=== PATIENT | female | born 1995 | race Caucasian/White ===

== ENCOUNTER 2022-05-21 13:41 | Outpatient (CLI) | payer OTHER, SELFPAY ==
[2022-05-21 16:02] LABS: Free T4 Free Thyroxine* 1.07 ng/dL (0.70-1.85)
[2022-05-23 13:05] LABS: Thyroid Peroxidase (TPO) Ab 3.6 IU/mL (0.0-9.0)
== END 2022-05-21 13:42 | disposition home or self-care (01) ==
PROVIDERS: Visit Provider Obstetrics & Gynecology
DX: O99.281 Endocrine, nutritional and metabolic diseases complicating pregnancy, first trimester (principal); E03.9 Hypothyroidism, unspecified; Z3A.14 14 weeks gestation of pregnancy
CPT/HCPCS: 84439; 84443; 86376

== ENCOUNTER 2022-05-21 13:56 | Outpatient (CLI) | payer OTHER, SELFPAY ==
--- NOTE | 2022-05-21 14:00 | US_ITS ---
Final Report Patient: MERY WU Facility:?[facility] Patient ID:?[id number] Site Patient ID:?[id number]. Site :?[id number] Study:?US OB Pelvis -05/21/2022 3:06:59 PM Ordering Physician:Kamran Redding Final Report: INDICATION: Possible vanishing twin Comparison ultrasound 04/11/2022 TECHNIQUE: Real-time fulton-scale imaging of the pelvis was performed. FINDINGS: Again seen is two intrauterine gestational sacs with thick inter twin membrane. Previously-seen were two living intrauterine twin gestations. Currently there is a one living gestation with crown-rump length measuring 7.3 centimeters corresponding to 13 weeks 3 days with EVELYN of 11/23/2022. heart rate measures 159 beats per minute. There is a 2nd empty gestational sac. There is no perigestational hemorrhage. IMPRESSION: 1. Previously documented dichorionic diamniotic living twin gestations on 04/11/2022. Currently there is one viable intrauterine gestation with crown-rump length measuring 7.3 cm corresponding to 13 weeks 3 days with EVELYN of 11/23/2022. There is an additional 2nd empty gestational sac reflecting demise. Dictated by Mora Enciso MD @ 05/21/2022 8:36:23 PM (Electronic Signature)
== END 2022-05-21 13:57 | disposition home or self-care (01) ==
PROVIDERS: Visit Provider Obstetrics & Gynecology
DX: O31.10X0 Continuing pregnancy after spontaneous abortion of one fetus or more, unspecified trimester, not applicable or unspecified (principal); Z3A.13 13 weeks gestation of pregnancy
CPT/HCPCS: 76805; 76816

== ENCOUNTER 2022-07-02 14:26 | Outpatient (CLI) | payer OTHER, SELFPAY | END 2022-07-02 14:27 | disposition home or self-care (01) | LOC: US 14:26 | PROVIDERS: Visit Provider Pediatrics Neonatal-Perinatal Medicine | DX: O31.12X0 Continuing pregnancy after spontaneous abortion of one fetus or more, second trimester, not applicable or unspecified (principal); Z3A.18 18 weeks gestation of pregnancy | CPT/HCPCS: 76811 ==

== ENCOUNTER 2022-08-01 11:09 | Outpatient (CLI) | payer OTHER, SELFPAY ==
[2022-08-01 17:03] LABS: Free T4 Free Thyroxine* 0.95 ng/dL (0.70-1.85)
== END 2022-08-01 11:10 | disposition home or self-care (01) ==
PROVIDERS: Visit Provider Obstetrics & Gynecology
DX: E03.9 Hypothyroidism, unspecified (principal); O99.280 Endocrine, nutritional and metabolic diseases complicating pregnancy, unspecified trimester; E05.90 Thyrotoxicosis, unspecified without thyrotoxic crisis or storm
CPT/HCPCS: 84439; 84443

== ENCOUNTER 2022-09-11 09:55 | Outpatient (CLI) | payer OTHER, SELFPAY ==
[2022-09-13 20:38] LABS: Rapid Plasma Reagin (RPR) Non Reactive (Non Reactive)
== END 2022-09-11 09:56 | disposition home or self-care (01) ==
LOC: NFLDREF 13:35
PROVIDERS: Visit Provider Obstetrics & Gynecology
DX: Z34.90 Encounter for supervision of normal pregnancy, unspecified, unspecified trimester (principal)
CPT/HCPCS: 86592

== ENCOUNTER 2022-09-11 13:53 | Outpatient (CLI) | payer OTHER, SELFPAY ==
--- NOTE | 2022-09-11 14:00 | CRLHL7_ITS ---
For Patients: As a result of the Century Cures Act, medical imaging exams and procedure reports are released immediately into your electronic medical record. You may view this report before your referring provider. If you have questions, please contact your health care provider. INDICATION: Third trimester scan, evaluate growth. History of vanishing twin , covid in . COMPARISON: 07/02/2022 TECHNIQUE: Real time fulton scale imaging of the fetus was performed. FINDINGS: Sonographic imaging demonstrates a single living intrauterine gestation. Fetus demonstrates a regular cardiac rate of 157 beats per minute. Fetus has a vertex position. The placenta lies posteriorly. Amniotic fluid volume appears normal and there is a single deepest vertical pocket: 5.4 cm. The estimated weight is 1332gm which lies at the 45th %. On the prior OB ultrasound exam dated 07/02/2022 the estimated weight was at the 38th%. BPD 75th percentile. HC 78th percentile. AC 63rd percentile. FL 10th percentile. The HC/AC ratio measures 1.11 range (0.98-1.20). IMPRESSION: Sonographic gestational age 29 weeks 4 days and sonographic due date 11/23/2022. Sonographic age 5 days ahead of the clinical age. Estimated weight 45th percentile. Abdominal circumference 63rd percentile. Dictated by Handy Richard MD @ 09/12/2022 10:20:43 AM (Electronically Signed)
== END 2022-09-11 13:54 | disposition home or self-care (01) ==
LOC: US 13:53
PROVIDERS: Visit Provider Obstetrics & Gynecology
DX: Z34.93 Encounter for supervision of normal pregnancy, unspecified, third trimester (principal); Z3A.29 29 weeks gestation of pregnancy
CPT/HCPCS: 76816

== ENCOUNTER 2022-09-24 15:58 | Outpatient (CLI) | payer OTHER, SELFPAY ==
[2022-09-24 18:24] LABS: Free T4 Free Thyroxine* 0.98 ng/dL (0.70-1.85)
== END 2022-09-24 15:59 | disposition home or self-care (01) ==
PROVIDERS: Visit Provider Obstetrics & Gynecology
DX: O98.513 Other viral diseases complicating pregnancy, third trimester (principal); Z3A.33 33 weeks gestation of pregnancy
CPT/HCPCS: 84439; 84443

== ENCOUNTER 2022-10-10 12:49 | Outpatient (CLI) | payer OTHER, SELFPAY ==
--- NOTE | 2022-10-10 13:00 | CRLHL7_ITS ---
For Patients: As a result of the Century Cures Act, medical imaging exams and procedure reports are released immediately into your electronic medical record. You may view this report before your referring provider. If you have questions, please contact your health care provider. INDICATION: Third trimester scan, evaluate growth. COVID and . COMPARISON: 09/11/2022 TECHNIQUE: Real time fulton scale imaging of the fetus was performed. FINDINGS: Sonographic imaging demonstrates a single living intrauterine gestation. Fetus demonstrates a regular cardiac rate of 152 beats per minute. Fetus has a breech position. The placenta lies posteriorly without evidence of placenta previa. Amniotic fluid volume appears normal and there is a single deepest vertical pocket: 5.1 cm. The estimated weight is 2119gm which lies at the 44th %. On the prior OB ultrasound exam dated 09/11/2022 the estimated weight was at the 45th%. BPD 60th percentile. HC 40th percentile. AC 46th percentile. FL 41st percentile. The HC/AC ratio measures 1.06 range (0.95-1.11). IMPRESSION: Sonographic gestational age 33 weeks 3 days and sonographic due date 11/25/2022. Good correlation with dates. Normal interval growth. Estimated weight 44th percentile. Abdominal circumference 46th percentile. Dictated by Handy Richard MD @ 10/10/2022 1:47:22 PM (Electronically Signed)
== END 2022-10-10 12:50 | disposition home or self-care (01) ==
LOC: US 12:49
PROVIDERS: Visit Provider Obstetrics & Gynecology
DX: O98.513 Other viral diseases complicating pregnancy, third trimester (principal); U07.1 COVID-19; Z3A.33 33 weeks gestation of pregnancy
CPT/HCPCS: 76816

== ENCOUNTER 2022-10-17 12:05 | Outpatient (CLI) | payer OTHER, SELFPAY ==
--- NOTE | 2022-10-17 12:15 | CRLHL7_ITS ---
For Patients: As a result of the Century Cures Act, medical imaging exams and procedure reports are released immediately into your electronic medical record. You may view this report before your referring provider. If you have questions, please contact your health care provider. INDICATION: COVID in COMPARISON: 10/10/2022 TECHNIQUE: Real time fulton scale imaging of the fetus was performed. Without non-stress testing. FINDINGS: Sonographic imaging demonstrates a single living intrauterine gestation. Fetus demonstrates a regular cardiac rate of 145 beats per minute. Fetus has a vertex position. The amniotic fluid volume appears normal and there is a single deepest pocket measurement of 5.0 cm. The fetus was active and demonstrated normal breathing movements. There was normal flexion and extension of the trunk and extremities. IMPRESSION: Normal biophysical profile score of 8 out of 8. Dictated by Handy Richard MD @ 10/17/2022 1:31:05 PM (Electronically Signed)
== END 2022-10-17 12:06 | disposition home or self-care (01) ==
LOC: US 12:05
PROVIDERS: Visit Provider Obstetrics & Gynecology
DX: O98.513 Other viral diseases complicating pregnancy, third trimester (principal); U07.1 COVID-19; Z3A.34 34 weeks gestation of pregnancy
CPT/HCPCS: 76819

== ENCOUNTER 2022-10-17 13:14 | Outpatient (CLI) | payer OTHER, SELFPAY ==
[2022-10-17 14:22] LABS: Alanine Aminotransferase* 19 U/L (4-35); Aspartate Amino Transferase* 35 U/L (12-35); Creatinine* 0.5 mg/dL (0.5-1.5); Estimated Glomerular Filt Rate 130 ml/min
[2022-10-17 14:35] LABS: Total Protein Urine 11 mg/dL
[2022-10-17 14:37] LABS: Creatinine Urine 115.1 mg/dL
== END 2022-10-17 13:15 | disposition home or self-care (01) ==
PROVIDERS: Visit Provider Obstetrics & Gynecology
DX: O13.3 Gestational [pregnancy-induced] hypertension without significant proteinuria, third trimester (principal); Z3A.34 34 weeks gestation of pregnancy
CPT/HCPCS: 82565; 82570; 84156; 84450; 84460

== ENCOUNTER 2022-10-24 12:01 | Outpatient (CLI) | payer OTHER, SELFPAY ==
[2022-10-24 13:03] LABS: Alanine Aminotransferase* 18 U/L (4-35); Aspartate Amino Transferase* 27 U/L (12-35); Creatinine* 0.5 mg/dL (0.5-1.5); Estimated Glomerular Filt Rate 130 ml/min
[2022-10-24 13:04] LABS: Creatinine Urine 120.3 mg/dL; Total Protein Urine 9 mg/dL
[2022-10-25 20:25] LABS: Strep B DNA Probe POSITIVE (Negative)
[2022-10-26 14:54] LABS: Strep B Pen/Amox Allergy No
== END 2022-10-24 12:02 | disposition home or self-care (01) ==
PROVIDERS: Obstetrics & Gynecology; Visit Provider Obstetrics & Gynecology
DX: O98.513 Other viral diseases complicating pregnancy, third trimester (principal); Z3A.35 35 weeks gestation of pregnancy
CPT/HCPCS: 82565; 82570; 84156; 84450; 84460; 87081; 87653

== ENCOUNTER 2022-10-24 12:14 | Outpatient (CLI) | payer OTHER, SELFPAY ==
--- NOTE | 2022-10-24 12:15 | CRLHL7_ITS ---
For Patients: As a result of the Century Cures Act, medical imaging exams and procedure reports are released immediately into your electronic medical record. You may view this report before your referring provider. If you have questions, please contact your health care provider. INDICATION: COVID in . BMI greater than 45. COMPARISON: OB ultrasound 10/17/2022. TECHNIQUE: Real time fulton scale imaging of the fetus was performed without non-stress testing. FINDINGS: Sonographic imaging demonstrates a single living intrauterine gestation. The fetus demonstrates a regular cardiac rate of 130 beats per minute. The fetus has a cephalic orientation. Amniotic fluid volume appears normal with single deepest pocket measuring 4.8 cm (2/2). The fetus was active (2/2). There was normal flexion and extension of the trunk and extremities (2/2). The fetus demonstrated normal breathing movements (2/2). IMPRESSION: Normal biophysical profile score 8 out of 8. Dictated by Ann Arias MD @ 10/24/2022 9:14:38 PM (Electronically Signed)
== END 2022-10-24 12:15 | disposition home or self-care (01) ==
LOC: US 12:15
PROVIDERS: Visit Provider Obstetrics & Gynecology
DX: O98.519 Other viral diseases complicating pregnancy, unspecified trimester (principal); U07.1 COVID-19
CPT/HCPCS: 76819

== ENCOUNTER 2022-10-30 09:03 | Outpatient (CLI) | payer OTHER, SELFPAY ==
[2022-10-30 14:30] LABS: Total Protein Urine 20 mg/dL
[2022-10-30 14:31] LABS: Creatinine Urine 47.7 mg/dL
[2022-10-30 15:25] LABS: Alanine Aminotransferase* 12 U/L (4-35); Aspartate Amino Transferase* 22 U/L (12-35); Blood Urea Nitrogen* 6 mg/dL (5-24); Creatinine* 0.5 mg/dL (0.5-1.5); Estimated Glomerular Filt Rate 130 ml/min
== END 2022-10-30 09:04 | disposition home or self-care (01) ==
PROVIDERS: Visit Provider Obstetrics & Gynecology
DX: O13.9 Gestational [pregnancy-induced] hypertension without significant proteinuria, unspecified trimester (principal)
CPT/HCPCS: 82565; 82570; 84156; 84450; 84460; 84520

== ENCOUNTER 2022-10-30 12:13 | Outpatient (CLI) | payer OTHER, SELFPAY ==
--- NOTE | 2022-10-30 12:15 | CRLHL7_ITS ---
For Patients: As a result of the Century Cures Act, medical imaging exams and procedure reports are released immediately into your electronic medical record. You may view this report before your referring provider. If you have questions, please contact your health care provider. INDICATION: Biophysical profile TECHNIQUE: Ultrasound OB pelvis abdominal biophysical profile COMPARISON: 10/24/2022 FINDINGS: Sonographic imaging demonstrates a single living intrauterine gestation. Fetus demonstrates a regular cardiac rate of 155 beats per minute. Fetus has a orientation. The placenta lies posterior. Cephalic presentation. The cervix is not visualized. Amniotic fluid volume appears normal with the single deepest pocket measuring 5.4 cm. breathing movements, motion, and tone were all observed. IMPRESSION: Single viable intrauterine with a biophysical profile 06/30. Dictated by Handy Etienne MD @ 10/31/2022 8:10:47 AM (Electronically Signed)
== END 2022-10-30 12:14 | disposition home or self-care (01) ==
LOC: US 12:13
PROVIDERS: Visit Provider Obstetrics & Gynecology
DX: O98.519 Other viral diseases complicating pregnancy, unspecified trimester (principal); U07.1 COVID-19; Z68.41 Body mass index [BMI] 40.0-44.9, adult
CPT/HCPCS: 76819

== ENCOUNTER 2022-11-03 09:02 | Outpatient (CLI) | payer OTHER, SELFPAY ==
[2022-11-03 10:07] LABS: Total Protein Urine 17 mg/dL
[2022-11-03 10:08] LABS: Creatinine Urine 47.7 mg/dL
[2022-11-03 11:59] LABS: Collection Time Urine 24 Hours; Total Protein 24 Hour Urine 578 mg/dL; Total Volume 24 Hour Urine 3400 ml; Urine Creatinine mg/24 Hour 0 mg/Day
== END 2022-11-03 09:03 | disposition home or self-care (01) ==
LOC: NFLDREF 09:02
PROVIDERS: Visit Provider Obstetrics & Gynecology
DX: O14.90 Unspecified pre-eclampsia, unspecified trimester (principal)
CPT/HCPCS: 84156

== ENCOUNTER 2022-11-06 08:11 | Inpatient (IN) | payer OTHER, SELFPAY ==
[2022-11-06] VITALS (17 sets, daily range): BP systolic 106–147; BP diastolic 57–87; PULSE 80–98; RESP 16–20; TEMP 36.6–37.1; O2SAT 97–98; BMI 48.1
--- NOTE | 2022-11-06 09:15 | P.LDBA_ITS ---
Documented by User: Karishma Yates CNM 11/06/22 13:01 Subjective History of Present Illness Date Seen: 11/06/22 Narrative: Roberta is being admitted to Labor and Delivery for induction of labor r/t Pre- Eclampsia. She is a 27 year old at 36w 6d weeks gestation. Her full history and physical was dictated by Dr. Yanes on 10/29/22. Please see this for details. She is currently being supported by her Harry. Understands the current plan of care. ?Pre-Eclampsia without severe features, diagnosed 3 days ago. Denies concerns. Questions answered to her satisfaction. ?She is open to unmedicated labor or epidural for comfort and pain management.??Roberta is a Orthodoxy and declines all blood products. Discussed option for prophylactic TXA, pt agreeable. OB Problem List: Blood Type: O positive Partner: [place] (Jarocho Briggs is his sister) Baby: Boy! Jacob H&P done 10/29/[address] Yari Huang 1. Di/Di Twins, spontaneously reduced to sandoval by 13 weeks - NO LONGER TWIN 2. BMI>45 * Recommended Baby ASA @ 12 weeks * Hb A1c (04/11/22): 5.4 * Level 2 US 07/02/22: normal * Anesthesia consult 3rd trimester * Monthly US for growth * 28 6/7 weeks: cephalic, SDP 5.4 cm, EFW 45%. * Thirty-three weeks: Breech, SDP 5.1 cm, EFW 44% with all growth parameters within normal ranges * Weekly BPP beginning 34 weeks 3. Orthodoxy Declines blood product, encouraged to start taking iron Hgb at NOB 13.2 4. Subclinical Hypothyroid NOB (04/11/22): TSH 5.06, T4 0.9. Started on Levothyroxine 50 mcg 04/14 Repeat TSH and free T4 05/21/22: TSH 1.020, normal free T4. Continue at current dose. Repeat TSH at 24 weeks: TSH 1.100, free T4 0.95 Repeat TSH at 30 weeks (09/24/2022): TSH 2.020, free T4 0.98 5. Rubella Equivocal, NEEDS MMR 6. Breech at 33 weeks. Now vertex. 7. Mild Preeclampsia dx'd 11/03/22 * Weekly BPP * Weekly labs 10/30/22: Hemoglobin 11.2, platelets 247, AST 22 , ALT 12, BUN 6, creatinine 0.5. Urine P/C ratio: 0.40 (H) * 24 hour urine for protein ordered to be given Jugs and hat on 10/31 when she gets her 2nd BMTZ. * 11/03/2022: 24 hour urine protein 578 mg * Delivery at 37 weeks gestation: Cervical ripening on 11/06/22 w/ vaginal cytotec. * BMTZ: #1 10/30/22. #2 10/31/22 NEEDS pap . Offered at 12 weeks; declines. COVID: vaccinated Flu: 09/24/2022 Tdap: 09/24/2022 ? OB - H&P: Exam Physical Exam: Vital signs: Pulse BP Pulse Ox 91 124/83 98 11/06/22 08:22 11/06/22 08:22 11/06/22 08:32 Narrative: VSS, afebrile General Appearance:?Calm, cooperative. No acute distress. ? Psychiatric Exam: Alert and oriented, appropriate affect Abdomen: Gravid Ctx: ?none FHTs: ?Baseline: 145 ? ?Variability: Moderate ? Accels: Present ? ?Decels: ?Absent SVE:Closed, thick & high. Membranes: Intact OB - Problem Based A/P Additional Plan (1) Pre-eclampsia: Status: Acute (2) Adult BMI 40.0-44.9 kg/sq m: Status: Acute (3) Hypothyroidism complicating : Status: Acute (4) Vanishing twin syndrome: Status: Acute (5) No blood products: Status: Acute Plan Assessment:??27yo at 36w 6d gestation?? Patient is excited and nervous for IOL, but overall doing well? Labor type: Induced, not in labor? Category 1 FHR pattern.?? complicated by: Pre-Eclampsia with out severe features, subclinical hypothyroidism, BMI 48 Labor complicated by: GBS+, Orthodoxy - declines blood products, BMI >40 Plan:?? Continue with routine intrapartum cares as ordered.?? IOL per cytotec protocol Continuous monitoring GBS prophylaxis per protocol IV access Patient encouraged to ambulate and change positions to promote physiologic labor and .?? Analgesia or nonpharmacologic comfort measures per patient preference. Patient does not plan for waterbirth. Prophylactic TXA before delivery Anticipate progress to active labor and . ? Delivery/Labor/Induction Plan Plan: induction Induction method: per misoprostol protocol Documented by User: Bonita Paz CNM 11/06/22 13:26 OB - Problem Based A/P Additional Plan (1) Pre-eclampsia: Status: Acute (2) Adult BMI 40.0-44.9 kg/sq m: Status: Acute (3) Hypothyroidism complicating : Status: Acute (4) Vanishing twin syndrome: Status: Acute (5) No blood products: Status: Acute Plan Assessment:?? 27yo at 36w 6d gestation?? Patient is excited and nervous for IOL, but overall doing well? Labor type: Induced, not in labor? Category 1 FHR pattern.?? complicated by: -Pre-Eclampsia with out severe features, -subclinical hypothyroidism, -BMI 48 Labor complicated by: -GBS+, -Orthodoxy - declines blood products -BMI >40 Plan:?? Continue with routine intrapartum cares as ordered.?? IOL per cytotec protocol Continuous monitoring GBS prophylaxis per protocol IV access Patient encouraged to ambulate and change positions to promote physiologic labor and .?? Analgesia or nonpharmacologic comfort measures per patient preference. Patient does not plan for waterbirth. Consider prophylactic TXA before delivery Anticipate progress to active labor and . ?
[2022-11-06 09:37] LABS: Basophils Percent Auto 0.3 % (0.0-3.0); Eosinophils Percent Auto 0.4 % (0.0-7.0); Hematocrit 36.3 % (33.0-51.0); Hemoglobin* 11.9 gm/dL (12.0-16.0); Immature Granulocytes Pct Auto 0.2 %; Lymphocytes Percent Auto 25.3 % (20-44); Mean Corpuscular HGB Conc 33 gm/dL (32-36); Mean Corpuscular Hemoglobin 26 pg (26-34); Mean Corpuscular Volume 80 fL (80-100); Monocytes Percent Auto 7.8 % (0.0-11.0); Platelet Count* 256 K/uL (140-440); RDW Coefficient of Variation % 14.4 % (11.5-15.5); Red Blood Count 4.55 m/uL (4.00-5.20); White Blood Count* 11.91 K/uL (4.50-11.00)
[2022-11-06 09:44] LABS: Slide Review Reflex No
[2022-11-06] MEDS: miSOPROStoL 25 MCG/0.25 TABLET VAGINAL ×3 (09:44→17:53)
[2022-11-06 10:36] LABS: SARS PCR* Negative SARS-CoV-2 (Negative)
[2022-11-06 20:34] LABS: Amnisure Rom* Negative
[2022-11-06] MEDS: miSOPROStoL 25 MCG/0.25 TABLET 50 MCG VAGINAL (21:50)
[2022-11-06 23:19] LABS: Alanine Aminotransferase* 13 U/L (4-35); Aspartate Amino Transferase* 21 U/L (12-35); Blood Urea Nitrogen* 10 mg/dL (5-24); Creatinine* 0.5 mg/dL (0.5-1.5); Estimated Glomerular Filt Rate 130 ml/min
[2022-11-07] VITALS (41 sets, daily range): BP systolic 95–176; BP diastolic 54–94; PULSE 63–84; RESP 16–18; TEMP 36.4–37.1; O2SAT 92–100
[2022-11-07] MEDS: miSOPROStoL 25 MCG/0.25 TABLET VAGINAL (01:45)
[2022-11-07] MEDS: LACTATED RINGERS 1000 ML 1,000 ML 125 ML IV (02:31)
[2022-11-07] MEDS: DINOPROSTONE 10 MG VAGINAL INSERT VAGINAL (06:00)
[2022-11-07] MEDS: LABETALOL HCL 5 MG/ML inj IVP (07:01)
[2022-11-07 07:43] LABS: Hematocrit 35.5 % (33.0-51.0); Hemoglobin* 11.5 gm/dL (12.0-16.0); Mean Corpuscular HGB Conc 32 gm/dL (32-36); Mean Corpuscular Hemoglobin 26 pg (26-34); Mean Corpuscular Volume 80 fL (80-100); Platelet Count* 237 K/uL (140-440); Red Blood Count 4.45 m/uL (4.00-5.20); White Blood Count* 14.45 K/uL (4.50-11.00)
[2022-11-07 07:49] LABS: Slide Review Reflex No
--- NOTE | 2022-11-07 07:52 | P.OBPN_ITS ---
Subjective Date Seen: 11/07/22 Narrative: 27 y/o at 37 weeks admitted yesterday morning for IOL in the setting of preeclampsia w/o severe features. Over a period of 24 hours she received a total dose of 150mcg of cytotec. Cervical check this morning by RN cervix was still found fingertip. Cervidil was placed this am. This morning patient had severely elevated blood pressures meeting criteria for treatment. Treated with IV Labetalol x1. Diagnosis of preeclampsia with severe features was made and IV Magnesium Sulfate started. No SOFTWARE ENGINEERING ANALYST irritability symptoms such as headaches, visual changes or pain in the upper abdomen. Objective Exam: Patient would like to defer at this time Vital Signs: Last Vital Signs Temp 98.4 F 11/07/22 05:50 Pulse 79 11/07/22 07:45 Resp 18 11/07/22 05:50 BP 128/71 11/07/22 07:45 Pulse Ox 98 11/06/22 08:32 Contractions Monitor mode: External Contraction pattern: Irregular Contraction intensity: Mild Assessment Assessment: other (Failed IOL in the setting of preeclampsia with severe features) Status: Category l Heart Rate Baseline: 120 Food Beverage Supervisor Variability: Moderate (6-25) Monitor Accelerations: Present Monitor Decelerations: None Plan Plan: Discussed with patient and current status. Discussed my concern of a persistent unfavorable cervix even after 150mcg of Cytotec yesterday. Discussed the risk of prolonging the IOL process in the setting of preeclampsia with severe features (worsening of preeclampsia symptoms, hard to manage blood pressures, end organ damage, risk of worsening bleeding with development of coagulopathy, risk of worsening bleeding with prolonged exposure to Magnesium Sulfate etc...). Discussed that IOL may take even up to more than 24 hours at this time and that I would recommend a delivery at this time. Discussed the difference between a delivery at this time vs in 12 hours etc... If they would like to proceed with IOL I offered to check her cervix to assess if I could place a cook catheter. Patient and were given time to talk and they have decided to proceed with delivery at this time. Discussed risks of surgery such as bleeding, infection, damage to nearby organs, blood clots. Patient is Jehova's witness and refuses blood transfusions, will plan to give TXA right away after delivery of baby. 1. Proceed to delivery 2. Continue IV Magnesium Sulfate for seizure prophylaxis x 24 hours after delivery 3. Labs every 6 hours while on Magnesium 4. Strict I/O 5. SCDs to remain all the time while in bed, prophylactic Lovenox while inpatient 6. Close monitoring of vital signs, treat severely elevated BPs per protocol
[2022-11-07 07:56] LABS: Alanine Aminotransferase* 14 U/L (4-35); Aspartate Amino Transferase* 21 U/L (12-35); Creatinine* 0.5 mg/dL (0.5-1.5); Estimated Glomerular Filt Rate 130 ml/min
[2022-11-07 07:57] LABS: Blood Urea Nitrogen* 7 mg/dL (5-24)
[2022-11-07 08:18] LABS: INR 0.95 (0.91-1.10); Prothrombin Time 13.3 Seconds
[2022-11-07 08:20] LABS: Fibrinogen* 600 mg/dL (200-450)
[2022-11-07 08:21] LABS: Partial Thromboplastin Time* 26 Seconds (23-33)
[2022-11-07] MEDS: CEFAZOLIN 1 GM inj 3 GM IVP (08:35)
[2022-11-07] MEDS: LACTATED RINGERS 1000 ML 1,000 ML 100 ML IV (08:57)
[2022-11-07] MEDS: TRANEXAMIC ACID 100 MG/ML INJ 1000 MG IV (09:00)
--- NOTE | 2022-11-07 09:23 | PM.OBPRCCS ---
Procedure Pre-op/Post-op diagnoses: Pre-Op/Post-Op Diagnoses PreOp Diagnosis 1. IUP at 37 weeks 2. Preeclampsia with severe features 3. Failed induction of labor PostOp Diagnosis: 1. Same, now delivered Procedure Done: Global Procedure Details: Procedures Operation Date: 11/07/22 08:15 Actual Procedure Side Surgeon p Section Shae Lewis MD Claims Adjuster Supervisor: Sindy Brown Estimated blood loss (mL): 362 Disposition: floor Anesthesia type: Spinal Complications: None Narrative: PREOPERATIVE DIAGNOSES: 1. Intrauterine at 37 0 /7 weeks' gestation. 2. Preeclampsia with severe features 3. Failed induction of labor POSTOPERATIVE DIAGNOSES: 1. Intrauterine at 37 0/7 weeks' gestation. 2. Preeclampsia with severe features 3. Failed induction of labor NAME OF PROCEDURE: Primary low transverse section. ANESTHESIA: Spinal. COMPLICATIONS: None. Quantitative BLOOD LOSS: 362mL DRAINS: Reid to gravity. FINDINGS: Live-born male infant, OA presentation, Apgars 7 and 9 at 1 and 5 minutes respectively. weight pending. PROCEDURE: After obtaining informed consent, the patient was taken to the operating room where spinal anesthesia was obtained and found to be adequate. She was prepared and draped in the normal sterile fashion in the dorsal supine position with a leftward tilt. A Pfannenstiel skin incision was made with a scalpel about 2 cm above symphysis pubic bone, 8-10 cm in length. This incision was carried down to the underlying layer of fascia with the scalpel. The fascia was incised in the midline and the incision extended laterally. The rectus muscles were then in the midline. The Boed O retractor was then placed into the incision. The lower uterine segment was then incised in a transverse fashion with the scalpel. Upon entry into the uterus, clear amniotic fluid was noted. The uterine incision was extended cephalo caudally with blunt finger fractionation. head was brought to incision and with fundal pressure fetus was delivered atraumatically. The cord was doubly clamped and cut after 30 seconds of delayed cord clamping and the was handed off the field to warmer for evaluation. The placenta was delivered spontaneously with umbilical cord traction and fundal massage. The uterus was cleared of all clots and debris. The uterine incision was reapproximated in a running locking fashion with a 0 Vicryl suture. A 2nd layer of the same suture was used to imbricate in horizontal fashion. The gutters were inspected and cleared of blood clot. All instruments and retractors were removed. The subfascial tissues were carefully inspected and hemostasis assured. The fascia was reapproximated in a running fashion with a looped 0 Vicryl suture. The subcutaneous tissues were inspected and hemostasis was assured. The subcutaneous fat layer was reapproximated with running sutures of 3-0 Vicryl. The skin was closed in a subcuticular fashion with 4-0 Vicryl. LiquiBand and dressing were applied. The patient tolerated the procedure well. Sponge, lap, needle, and instrument counts were reported as correct x2. The patient was taken to the recovery room, awake, and in stable condition. She did receive 3 grams of IV Ancef preoperatively and 1 g of TXA after baby was delivered. Will continue IV Magnesium sulfate infusion x 24 hours .
--- NOTE | 2022-11-07 09:54 | W.PM.NB ---
Nerve Block Nerve Block Time Seen by Provider: 09:45 Date Seen: 11/07/22 Type of block requested by surgeon for post-operative analgesia: TAP Side: bilateral Time out performed: Yes Verification of patient name: Yes Verification of date of : Yes Site marking: site marked Name of person performing procedure: Maximus Reney Continuous monitoring Was continuous monitoring of O2 sat, B/P, manager monitoring, recorded every 15 minutes?: Yes Procedure Checklist: sterile prep, needles and gloves Ultrasound guided. Images saved: Yes Medications given in 5ml increments after negative aspiration: Marcaine %: 0.25 mL: 30 and Exparel mL: 10 Patient tolerated procedure well: Yes Block Charges Block Charge (with Pro Fee): TAP Bilateral Use of Ultrasound Machine for Block: Yes- US Guidance/pain block
--- NOTE | 2022-11-07 09:55 | W.ANESCHARGE ---
Anesthesia Charges Start Date/Time Anesthesia Start Date: 11/07/22 Anesthesia Start Time: 08:27 Stop Date/Time Anesthesia Stop Date: 11/07/22 Anesthesia Stop Time: 09:52 Summary Emergency: Yes
[2022-11-07 09:56] LABS: Magnesium* 1.9 mg/dL (1.5-2.6)
[2022-11-07] MEDS: LACTATED RINGERS 1000 ML 1,000 ML 75 ML IV (12:53)
[2022-11-07 13:55] LABS: Hematocrit 36.1 % (33.0-51.0); Hemoglobin* 11.7 gm/dL (12.0-16.0); Mean Corpuscular HGB Conc 32 gm/dL (32-36); Mean Corpuscular Hemoglobin 26 pg (26-34); Mean Corpuscular Volume 80 fL (80-100); Platelet Count* 248 K/uL (140-440); White Blood Count* 19.28 K/uL (4.50-11.00)
[2022-11-07 14:01] LABS: Slide Review Reflex No
[2022-11-07 14:14] LABS: Creatinine* 0.5 mg/dL (0.5-1.5); Estimated Glomerular Filt Rate 130 ml/min
[2022-11-07 14:15] LABS: Alanine Aminotransferase* 15 U/L (4-35); Aspartate Amino Transferase* 30 U/L (12-35); Blood Urea Nitrogen* 6 mg/dL (5-24)
[2022-11-07 14:40] LABS: Magnesium* 4.8 mg/dL (1.5-2.6)
[2022-11-07] MEDS: KETOROLAC 30 MG/ML inj IVP ×2 (16:03→21:35)
[2022-11-07 19:40] LABS: Hematocrit 34.4 % (33.0-51.0); Hemoglobin* 11.1 gm/dL (12.0-16.0); Mean Corpuscular HGB Conc 32 gm/dL (32-36); Mean Corpuscular Hemoglobin 26 pg (26-34); Mean Corpuscular Volume 80 fL (80-100); Platelet Count* 249 K/uL (140-440); Red Blood Count 4.28 m/uL (4.00-5.20); White Blood Count* 19.65 K/uL (4.50-11.00)
[2022-11-07 19:42] LABS: Slide Review Reflex No
[2022-11-07 19:57] LABS: Aspartate Amino Transferase* 27 U/L (12-35); Creatinine* 0.6 mg/dL (0.5-1.5); Est. Creatinine Clearance* 109.42; Estimated Glomerular Filt Rate 125 ml/min
[2022-11-07 19:58] LABS: Alanine Aminotransferase* 17 U/L (4-35); Blood Urea Nitrogen* 8 mg/dL (5-24)
[2022-11-07 20:01] LABS: Magnesium* 5.4 mg/dL (1.5-2.6)
[2022-11-07] MEDS: ENOXAPARIN 40 MG/0.4 ML INJ SUBCUT (21:35)
[2022-11-07] MEDS: SIMETHICONE 80 MG TAB.CHEW PO (23:27)
[2022-11-08] VITALS (8 sets, daily range): BP systolic 112–137; BP diastolic 67–86; PULSE 73–94; RESP 16; TEMP 36.4–36.9; O2SAT 96–99
[2022-11-08 01:37] LABS: Hematocrit 35.4 % (33.0-51.0); Hemoglobin* 11.4 gm/dL (12.0-16.0); Mean Corpuscular HGB Conc 32 gm/dL (32-36); Mean Corpuscular Hemoglobin 26 pg (26-34); Mean Corpuscular Volume 81 fL (80-100); Platelet Count* 276 K/uL (140-440); White Blood Count* 20.43 K/uL (4.50-11.00)
[2022-11-08 01:40] LABS: Slide Review Reflex No
[2022-11-08] MEDS: LACTATED RINGERS 1000 ML 1,000 ML 75 ML IV (01:41)
[2022-11-08 01:47] LABS: Alanine Aminotransferase* 15 U/L (4-35); Aspartate Amino Transferase* 27 U/L (12-35); Blood Urea Nitrogen* 10 mg/dL (5-24); Creatinine* 0.6 mg/dL (0.5-1.5); Est. Creatinine Clearance* 109.42; Estimated Glomerular Filt Rate 125 ml/min
[2022-11-08] MEDS: KETOROLAC 30 MG/ML inj IVP ×2 (03:02→09:24)
[2022-11-08 07:34] LABS: Hematocrit 30.3 % (33.0-51.0); Hemoglobin* 9.8 gm/dL (12.0-16.0); Mean Corpuscular HGB Conc 32 gm/dL (32-36); Mean Corpuscular Hemoglobin 26 pg (26-34); Mean Corpuscular Volume 80 fL (80-100); Platelet Count* 221 K/uL (140-440); Red Blood Count 3.78 m/uL (4.00-5.20); White Blood Count* 14.08 K/uL (4.50-11.00)
[2022-11-08 07:42] LABS: Slide Review Reflex No
[2022-11-08 07:49] LABS: Alanine Aminotransferase* 13 U/L (4-35); Aspartate Amino Transferase* 23 U/L (12-35); Blood Urea Nitrogen* 8 mg/dL (5-24); Creatinine* 0.5 mg/dL (0.5-1.5); Estimated Glomerular Filt Rate 130 ml/min
[2022-11-08] MEDS: DOCUSATE SODIUM 100 MG CAPSULE PO (09:25)
--- NOTE | 2022-11-08 09:43 | P.OBPN_ITS ---
OB - PN: A/P Assessment and Plan (1) Pre-eclampsia: Problem details: off mag Status: Acute (2) Adult BMI 40.0-44.9 kg/sq m: Status: Acute (3) Hypothyroidism complicating : Status: Acute (4) Vanishing twin syndrome: Status: Acute (5) No blood products: Status: Acute Plan day: 1 Plan: routine postop care Comments: 1. Continue close observation of BP. If BP increases now that she is off mag and beginning to ambulate, consider starting Procardia XL 30-60 mg daily. 2. Will stop routine q6H labs. Recheck labs prn rebound hypertension. 3. Okay to stop IV toradol and switch to scheduled q6H ibuprofen. OB - PN: Subj Subjective Time Seen by Provider: 09:30 Date Seen: 11/08/22 Patient comments: no complaints, pain well controlled (Pain rated 0/10) and tolerating diet [place] status: (working on it) Narrative: Mag infusion discontinued at approximately 9:00 am. Right forearm IV site not running well. OB - PN: Obj Exam Physical Exam: Vital signs: Temp Pulse Resp BP Pulse Ox O2 Del Method 97.9 F 73 16 127/83 99 11/08/22 09:00 11/08/22 09:00 11/08/22 09:00 11/08/22 09:00 11/08/22 09:00 11/08/22 04:45 Constitutional: Constitutional: no acute distress Routine Neck Exam: Neck: Present normal inspection Routine Abdominal Exam: Abdominal: Present soft; Absent tenderness Fundus: Present firm Routine Extremities Exam: Extremities: Present normal inspection and pedal edema; Absent calf tenderness Routine Neurological Exam: Neurological: Present alert and oriented X3 Routine Psychiatric Exam: Psychiatric: Present normal affect Wound Management: Method: suture Examination: Present clean, dry and intact; Absent erythematous Comments: Pfannenstiel incision Urinary Catheter Management: Urethral: Cath placed during this visit: yes Urethral indwelling: No Reason for continuing: surgical procedure Insertion date: 11/07/22 Insertion time: 08:45 OB - PN: Obj Data Labs Labs: Laboratory Results - last 24 hr 11/07/22 11/07/22 11/07/22 07:26 13:44 13:44 WBC 19.28 H RBC 4.50 Hgb 11.7 L Hct 36.1 MCV 80 MCH 26 MCHC 32 Plt Count 248 BUN 6 Creatinine 0.5 Estimated Creat Clear 131.30 Estimated GFR 130 Magnesium 1.9 AST 30 ALT 15 11/07/22 11/07/22 11/07/22 13:44 19:32 19:32 WBC 19.65 H RBC 4.28 Hgb 11.1 L Hct 34.4 MCV 80 MCH 26 MCHC 32 Plt Count 249 BUN 8 Creatinine 0.6 Estimated Creat Clear 109.42 Estimated GFR 125 Magnesium 4.8 H* AST 27 ALT 17 11/07/22 11/08/22 11/08/22 19:32 01:22 01:22 WBC 20.43 H RBC 4.40 Hgb 11.4 L Hct 35.4 MCV 81 MCH 26 MCHC 32 Plt Count 276 BUN 10 Creatinine 0.6 Estimated Creat Clear 109.42 Estimated GFR 125 Magnesium 5.4 H* AST 27 ALT 15 11/08/22 11/08/22 07:28 07:28 WBC 14.08 H RBC 3.78 L Hgb 9.8 L Hct 30.3 L MCV 80 MCH 26 MCHC 32 Plt Count 221 BUN 8 Creatinine 0.5 Estimated Creat Clear 131.30 Estimated GFR 130 Magnesium AST 23 ALT 13
[2022-11-08] MEDS: ACETAMINOPHEN 500 MG TABLET 1000 MG PO ×2 (12:17→18:59)
[2022-11-08] MEDS: SIMETHICONE 80 MG TAB.CHEW PO (13:58)
[2022-11-08] MEDS: LEVOTHYROXINE 50 MCG TABLET PO (14:37)
[2022-11-08] MEDS: OXYCODONE 5 MG TABLET PO (15:41)
[2022-11-08] MEDS: IBUPROFEN 600 MG TABLET PO ×2 (15:46→21:54)
[2022-11-08] MEDS: LANOLIN CREAM 1 APPLIC TOPICAL (20:03)
[2022-11-08] MEDS: MEASLES,MUMPS,RUBELLA VACC/PF 1 DOSE INJ 1 EACH SUBCUT (21:46)
[2022-11-08] MEDS: ENOXAPARIN 40 MG/0.4 ML INJ SUBCUT (21:48)
[2022-11-09 00:19] VITALS: BP 141/84; PULSE 69; RESP 16; TEMP 36.9; O2SAT 96
[2022-11-09] MEDS: ACETAMINOPHEN 500 MG TABLET 1000 MG PO ×2 (00:25→09:10)
[2022-11-09 03:35] VITALS: BP 139/85; PULSE 76; RESP 16; TEMP 37; O2SAT 97
[2022-11-09] MEDS: OXYCODONE 5 MG TABLET PO ×2 (03:50→13:14)
[2022-11-09] MEDS: IBUPROFEN 600 MG TABLET PO ×2 (06:16→13:14)
[2022-11-09] MEDS: LEVOTHYROXINE 50 MCG TABLET PO (06:16)
[2022-11-09 08:45] VITALS: BP 133/77; PULSE 73; RESP 16; TEMP 37; O2SAT 98
[2022-11-09] MEDS: DOCUSATE SODIUM 100 MG CAPSULE PO (09:10)
--- NOTE | 2022-11-09 09:58 | P.DS_ITS ---
DS: Providers Provider Date Seen: 11/09/22 Date of admission: 11/06/22 08:11 Primary care physician: Not a Local Provider Admitting Clinician: Bonita Paz CNM Attending Physician on discharge: Adriana Gary MD Date of Discharge: 11/09/22 DS: Diagnosis Discharge Diagnosis (1) S/P section: Status: Acute (2) Pre-eclampsia: Status: Acute Exam Const: Vital Signs, click to edit/add: Vital Signs - 24 hr 11/08/22 13:30 11/08/22 17:06 11/08/22 19:47 Temperature 98.3 F 98.3 F 98.5 F Pulse Rate [Pulse Oximeter] 94 83 77 Respiratory Rate 16 16 16 Blood Pressure [Le ft Arm] 130/86 112/67 137/83 Pulse Oximetry 96 96 96 Oxygen Delivery Me thod Room Air Room Air Room Air 11/09/22 00:19 11/09/22 03:35 11/09/22 08:45 Temperature 98.5 F 98.6 F 98.6 F Pulse Rate [Pulse Oximeter] 69 76 73 Respiratory Rate 16 16 16 Blood Pressure [Le ft Arm] 141/84 H 139/85 133/77 Pulse Oximetry 96 97 98 Oxygen Delivery Me thod Room Air Room Air Room Air OB - DS: Summary Hospital Course Hospital Course: The patient is a 27 year old G 1 P 1001 at 37 weeks gestation that was admitted to the Center on 11/06/22 for induction of labor secondary to pre- eclampsia, initially without severe features. She then had BP in the severe range during the first 24 hours of cervical ripening and received IV labetalol and was started on magnesium sulfate prophylaxis. She had an uncomplicated delivery for arrest of labor/failed induction. She delivered a viable male . She is breast feeding. the patient has done well. BP has been under good control without medication since magnesium infusion was discontinued on POD #1. Peripartum Data Procedures: Procedures Operation Date: 11/07/22 08:15 Actual Procedure Side Surgeon p Section Shae Lewis MD complications: none Infant Gender: Male Infant Discharge Plan: Home Time Spent with Patient Time attestation: Total time spent providing and/or coordinating discharge services: Discharge Plan Discharge Disposition: Home, Self-Care Date of Admission: 11/06/22 08:11 Attending Provider on Discharge: Adriana Gary Primary Care Provider: Provider,Not a Local Condition: Stable Anticipated Discharge Date/Time: 11/09/22 18:06 Discharge Medications: New docusate sodium 100 mg Capsule 100 mg PO DAILY Qty: 30 0RF ibuprofen 600 mg Tablet 600 mg PO Q6H PRN (Reason: Pain) Qty: 30 0RF oxycodone 5 mg Tablet 5 mg PO Q6H PRN (Reason: Pain) Qty: 20 0RF Continued magnesium 250 mg tablet 250 mg PO QDAY prenat.vits,allyson,twp-ifut-colqa Tablet 1 tab PO QDAY cholecalciferol (vitamin D3) 10 mcg (400 unit) capsule 10 mcg PO QDAY Saccharomyces boulardii [Daily Probiotic (S. boulardii)] 250 mg capsule 250 mg PO BID aspirin 81 mg tablet,chewable 81 mg PO QDAY levothyroxine 50 mcg tablet 50 mcg PO QDAY Qty: 90 0RF Discharge Orders: Discharge Order (Routine); Ordered 11/09/22 Ordered By: Adriana Gary Additional Instructions: Discharge instructions were reviewed with the patient including signs and symptoms of infection and home going medications Lifting Restrictions: 20 pounds for 6 weeks No not submerge incision under water X 2 weeks? Nothing vaginally for 6 weeks: no tampons or intercourse Do not drive while taking narcotic pain medication(s) Off Work or School for 8 weeks Symptoms to report to doctor: * Bleeding that saturates more than one pad per hour * Passing clots larger than the size of a golf ball * Pain not relieved by prescribed medication * Fever above 100.4 degrees Fahrenheit * A foul vaginal odor * Difficulty in emotions, mood, and functions * Thoughts of hurting yourself and/or * Painful, reddened area in your breast * Any drainage, redness, or tenderness in your IV/epidural site * Severe headache that doesn't improve after taking medications * Changes in vision, including temporary loss of vision, blurred vision, and/or light sensitivity * Upper abdominal pain (usually under ribs on the right side) * Decrease in urination or painful, frequent urinating * Chest pain * Shortness of breath * Tenderness or pain with redness and/swelling in the calf(s) of your leg Optional 2-week visit: incision check, discuss infant feeding concerns, review control options and screen for anxiety/depression. 6-week visit for an annual exam. consultation services are available to all mothers and babies for the first year after delivery.? To make an appointment, please call [phone]. Follow Up Appointments: Provider,Not a Local [Primary Care Provider] - Forms: [facility] Info Instructions
== END 2022-11-09 15:00 | disposition home or self-care (01) | DRG 788 ==
PROVIDERS: Advanced Practice Midwife; Obstetrics & Gynecology; Admitting Provider Advanced Practice Midwife; Visit Provider Obstetrics & Gynecology
PROC: 10D00Z1 Extraction of Products of Conception, Low, Open Approach (ICD-10-PCS; CPT 59514; principal; 2022-11-07 08:00)
DX: O14.14 Severe pre-eclampsia complicating childbirth (principal); O61.0 Failed medical induction of labor; Z37.0 Single live birth; O99.284 Endocrine, nutritional and metabolic diseases complicating childbirth; E03.9 Hypothyroidism, unspecified; Z3A.37 37 weeks gestation of pregnancy
CPT/HCPCS: 01961; 36415; 59200; 64488; 76942; 82565; 83735; 84112; 84450; 84460; 84520; 85018; 85025; 85027; 85384; 85610; 85730; 86850; 86900; 86901; 87635; 88307; 99140; A9270; C9290; J0690; J1100; J1200; J1650; J1885; J2274; J2370; J2405; J2590; J3475; J3490; J7120

== ENCOUNTER 2022-11-21 11:07 | Outpatient (CLI) | payer OTHER, SELFPAY ==
--- NOTE | 2022-11-21 11:10 | W.PM.LAC.MC ---
Consult Note - Mom Date of Visit Date of visit: 11/21/22 interventional sale consultant: Kiesha Galvez Visit Code: Visit Patient's Information Phone number: [phone] : 1 Para: 1 Allergies No Known Allergies Allergy (Verified 11/06/22 18:15) Mother's Medical History: Medical History (Updated 11/11/22 @ 00:01 by ) Adult BMI 40.0-44.9 kg/sq m Delivery Information Delivery type: Primary C/S; Labored (failed induction) Weeks Gestation: 37.0 Gestational Age: AGA Weight: 2.892 kg Discharge Weight: 2.645 kg Baby's Information Baby's Age at Visit: 14 days Baby's Provider or Clinic: Dr. Correa Jaundice: No Reason for Consult Reason for Consult: baby isn't latching easily Past Experience Past Experience: No Current Frequency of Day Feedings: every 2 - 3 hours around the clock Both Breasts: Yes (mom attempts) Latch: mom has a difficult time getting him to latch and nurse Length of Time: feeding sessions can go up to 60 minutes Pumping Pumping: No (she hasn't pumped in 3 - 4 days) Quantity Pumped: when she was pumpig she got about 1.5 oz total each time Supplementing EMB Supplement: Yes (POC supplement with about 1 oz EBM or formula after almost every feeding) Formula Supplement: Yes Baby Elimination Number of Wet Diapers a Day: with almost every feeding Number of BM a Day: with almost every feeding Breast/Nipple Condition Breast Information: WNL Onsite Pre-Feed weight: 2.842 kg Post-Feed weight: 2.884 kg Milk Transferred (mL): 42 Assessments/Interventions Assessments/Interventions: Met with mom and this now 2 week old ex- 37 0/7 week AGA baby for consult.? Mom reports she has struggled getting him to latch almost since ; the nipple shield helps.? Baby is nursing every 2 - 3 hours for up to one hour.? He usually needs supplementation afterwards and POC finger feed about 30 ml EBM (donor) or formula.? There are times when baby won't nurse or he's so hungry that POC finger feed first.? Mom stopped pumping 3 - 4 days ago to concentrate on just nursing baby; states when she was pumping she got about 1.5 oz total each time.? Mom has a hx of hypothyroidism, controlled with medication.? Breasts WNL- symmetrical with rounded lower quadrants, intramammary distance is < 1.5 inches.? Nipples are everted but flatten on compression; no damage noted. Baby has gained 25 grams/day since his last visit on 11/19 and he's 2% below BW at two weeks of age.? POC deny any caput/cephalohematoma and state he has equal ROM when turning his head/moving his extremities.? His upper frenulum is tight and thick and his palate is a little arched.? His lower frenulum may be a little anterior, but he extends his tongue past the gum line when sucking on a finger and the tongue has good lateral movement.? Mom attempted to latch baby to the left side without the nipple shield without success.? When she applied it baby appeared to have a deep latch and nursed for about 15 minutes needing some stimulation to stay awake, milk was seen in the shield.? When she offered the right side she was able to latch him without the shield and he nursed for 7 - 8 minutes.? He transferred 42 ml.? He seemed content but as the visit was wrapping up began to get fussy so mom supplemented with 15 ml donor milk. Plan: 1. Continue to breastfeed every 2 - 3 hours.? Practice without the shield, but it's ok if he needs it.? Offer both sides at each feeding and keep the feedings to 30 - 40 minutes total. 2. Supplement with EBM/formula if he still seems hungry after nursing.? Reviewed babies his age normally want 1.5 - 3 oz at each feeding.? OK to continue with finger feeding, but if this is getting overwhelming ok to switch to a slow flow nipple.? Paced feeding was discussed and a handout given. 3. Suggested mom start pumping again and she felt 3 - 4 times/day was manageable. She has a Medela. 4. Will f/u on 12/05/22 to see how weaning from the shield is going and have another pre/post feeding weight. Meds Home Medications and Allergies Home Medications Medication Instructions Recorded Confirmed Type Saccharomyces boulardii 250 mg 250 mg PO BID 05/21/22 11/06/22 History capsule (Daily Probiotic (S. boulardii)) cholecalciferol (vitamin D3) 10 10 mcg PO QDAY 05/21/22 11/06/22 History mcg (400 unit) capsule prenat.vits,allyson,rwh-[id number]-iuizn 1 tab PO QDAY 05/21/22 11/06/22 History magnesium 250 mg tablet 250 mg PO QDAY 08/01/22 11/06/22 History aspirin 81 mg chewable tablet 81 mg PO QDAY 10/17/22 11/06/22 History Allergies Allergy/AdvReac Type Severity Reaction Status Date / Time No Known Allergies Allergy Verified 11/06/22 18:15
== END 2022-11-21 11:08 | disposition home or self-care (01) ==
LOC: OB LAC 11:09
PROVIDERS: Visit Provider Obstetrics & Gynecology
DX: Z39.1 Encounter for care and examination of lactating mother (principal)
CPT/HCPCS: 99211

== ENCOUNTER 2024-06-01 13:41 | Outpatient (CLI) | payer BC, SELFPAY ==
--- NOTE | 2024-06-01 14:00 | CRLHL7_ITS ---
For Patients: As a result of the Cures Act, medical imaging exams and procedure reports are released immediately into your electronic medical record. You may view this report before your referring provider. If you have questions, please contact your health care provider. INDICATION: First trimester scan, establish dates. COMPARISON: None. TECHNIQUE: Real-time fulton-scale imaging of the pelvis was performed. FINDINGS: Sonographic imaging demonstrates a single living intrauterine gestation. The embryo demonstrates a regular cardiac rate measuring 178 beats per minute. The embryo`s crown-rump length measurement of 2.8 cm corresponds to a gestational age of 9 weeks 4 days with a sonographic due date of 12/31/2024. There is a normal-appearing yolk sac. There are no gross abnormalities noted within the embryo at this early state of development. The gestational sac has a normal appearance. There is a 2.5 x 1.8 x 1.8 cm perigestational hemorrhage. The amount of fluid within the sac appears appropriate for gestational age. The cervix is closed. section scar noted. Normal right ovary. Left ovary not visualized. There are no suspicious fluid collections noted in the cul-de-sac. IMPRESSION: Single living intrauterine with sonographic gestational age 9 weeks 4 days and sonographic due date of 12/31/2024. Subchorionic hemorrhage on the left measuring 2.5 x 1.8 x 1.8 cm. Dictated by Handy Richard MD @ 06/02/2024 7:47:02 AM (Electronically Signed)
== END 2024-06-01 13:42 | disposition home or self-care (01) ==
LOC: US 13:47
PROVIDERS: Visit Provider Registered Nurse
DX: Z34.91 Encounter for supervision of normal pregnancy, unspecified, first trimester (principal); O20.9 Hemorrhage in early pregnancy, unspecified; Z3A.09 9 weeks gestation of pregnancy
CPT/HCPCS: 76817; 82565; 82570; 84156; 84443; 84450; 84460; 84520; 84550; 86592; 86703; 86704; 86706; 86762; 86787; 86803; 86850; 86900; 86901; 87086; 87340; 87491; 87591

== ENCOUNTER 2024-06-06 07:54 | Outpatient (CLI) | payer BC, SELFPAY | END 2024-06-06 07:55 | disposition home or self-care (01) | LOC: NFLDREF 13:10 | PROVIDERS: Visit Provider Registered Nurse | DX: Z34.90 Encounter for supervision of normal pregnancy, unspecified, unspecified trimester (principal) | CPT/HCPCS: 82570; 84156 ==

== ENCOUNTER 2024-10-05 12:02 | Outpatient (CLI) | payer BC, SELFPAY | END 2024-10-05 12:03 | disposition home or self-care (01) | LOC: NFLDREF 10-08 20:46 | PROVIDERS: Visit Provider Obstetrics & Gynecology | DX: O10.912 Unspecified pre-existing hypertension complicating pregnancy, second trimester (principal); Z86.39 Personal history of other endocrine, nutritional and metabolic disease; Z3A.27 27 weeks gestation of pregnancy | CPT/HCPCS: 84443; 86592 ==

== ENCOUNTER 2024-10-05 12:09 | Outpatient (CLI) | payer BC, SELFPAY ==
--- NOTE | 2024-10-05 12:15 | CRLHL7_ITS ---
For Patients: As a result of the Century Cures Act, medical imaging exams and procedure reports are released immediately into your electronic medical record. You may view this report before your referring provider. If you have questions, please contact your health care provider. HISTORY: Chronic hypertension. COMPARISON: Early OB ultrasound from 06/01/2024 TECHNIQUE: Ultrasound examination of the is performed with transabdominal technique. FINDINGS: A single intrauterine gestation is seen in cephalic presentation with regular cardiac activity at 150 beats per minute. The placenta is anterior and is free of the cervical os. The placental grade is 1 and the amniotic fluid volume is normal. Single deepest vertical pocket: 4.5 cm. BPD: 6.5 cm 26 weeks 2 days, less than the 3rd percentile HC: 25.8 cm 28 weeks 0 days AC: 23.9 cm 28 weeks 1 day, 49th percentile FL: 5.2 cm 27 weeks 5 days The estimated age by ultrasound is 27 weeks 4 days, with an estimated date of delivery of 12/31/2024. This correlates well with the clinical age of 28 weeks 0 days. The ultrasound ratios are normal. The estimated weight of 1100 grams is at the 33rd percentile based on the clinical dates. The stomach, kidneys, and bladder are normal appearance. IMPRESSION: 1. Single intrauterine gestation in cephalic presentation with regular cardiac activity. 2. Estimated gestational age is 27 weeks 4 days. 3. There has been appropriate interval growth. 4. Estimated weight of 1100 grams is at the 33rd percentile based on the clinical dates. Dictated by John Beatty MD @ 10/05/2024 11:36:50 PM (Electronically Signed)
== END 2024-10-05 12:10 | disposition home or self-care (01) ==
LOC: US 12:09
PROVIDERS: Visit Provider Obstetrics & Gynecology
DX: O10.912 Unspecified pre-existing hypertension complicating pregnancy, second trimester (principal); Z3A.27 27 weeks gestation of pregnancy
CPT/HCPCS: 76816

== ENCOUNTER 2024-11-03 07:13 | Outpatient (CLI) | payer BC, SELFPAY ==
--- NOTE | 2024-11-03 07:15 | CRLHL7_ITS ---
For Patients: As a result of the Cures Act, medical imaging exams and procedure reports are released immediately into your electronic medical record. You may view this report before your referring provider. If you have questions, please contact your health care provider. Indication: Chronic hypertension. Assess well-being and growth. Technique: Sonography of the gravid uterus was performed. The study was performed as per routine biophysical profile. Anatomy was also performed for biometry only. Comparison: The most recent study of October 05, 2024 Findings: The biophysical profile score is 6/8. breathing movements were less than required for 2 points. There is a single live intrauterine gestation that is vertex. The cervix was not visualized. The single deepest pocket is 5.1 centimeters. The placenta is anterior. heart rate is 149 beats per minute. Biometry: BPD is 7.8 centimeters corresponding to 31 weeks and 3 days. This is at the 22rd percentile HC is 29.5 centimeters corresponds to 32 weeks and 4 days. This is at the 23rd percentile The AC is 28.3 centimeters corresponds to 32 weeks and 2 days. This is at the 54th percentile The FL is 6.1 centimeters corresponding to 31 weeks and 5 days. This is at the 25th percentile FL/AC ratio is 21.57. The HC/AC ratio is 1.04. Estimated weight of 1897 grams corresponds to the 37th percentile based on the gestational age. Current age is 32 weeks and 0 days by current ultrasound. Current ultrasound estimated date of delivery is 12/29/2024. Impression: 1. The biophysical profile score is 6/8 with 0 points awarded for insufficient breathing movements. 2. Single live intrauterine gestation that is vertex. Anterior placenta. Normal heart rate. Single deepest pocket 5.1 centimeters. 3. Estimated weight of 1897 grams is at the 37th percentile. 4. Other biometry as in the body of the report. Dictated by Rocky Corrales MD @ 11/03/2024 8:19:43 AM (Electronically Signed)
== END 2024-11-03 07:14 | disposition home or self-care (01) ==
LOC: US 07:13
PROVIDERS: Visit Provider Obstetrics & Gynecology
DX: O10.919 Unspecified pre-existing hypertension complicating pregnancy, unspecified trimester (principal)
CPT/HCPCS: 76816; 76819

== ENCOUNTER 2024-11-03 08:08 | Outpatient (CLI) | payer BC, SELFPAY | END 2024-11-03 08:09 | disposition home or self-care (01) | LOC: NFLDREF 11:53 | PROVIDERS: Visit Provider Obstetrics & Gynecology | DX: O10.913 Unspecified pre-existing hypertension complicating pregnancy, third trimester (principal); Z3A.32 32 weeks gestation of pregnancy | CPT/HCPCS: 82565; 82570; 84156; 84450; 84460; 84520 ==

== ENCOUNTER 2024-11-11 08:08 | Outpatient (CLI) | payer BC, SELFPAY | END 2024-11-11 08:09 | disposition home or self-care (01) | LOC: NFLDREF 11-12 00:48 | PROVIDERS: Visit Provider Obstetrics & Gynecology | DX: O10.913 Unspecified pre-existing hypertension complicating pregnancy, third trimester (principal); Z3A.34 34 weeks gestation of pregnancy | CPT/HCPCS: 82565; 82570; 84156; 84450; 84460; 84520 ==

== ENCOUNTER 2024-11-18 08:05 | Outpatient (CLI) | payer BC, SELFPAY | END 2024-11-18 08:06 | disposition home or self-care (01) | LOC: NFLDREF 11-23 22:14 | PROVIDERS: Visit Provider Obstetrics & Gynecology | DX: O10.913 Unspecified pre-existing hypertension complicating pregnancy, third trimester (principal); Z3A.34 34 weeks gestation of pregnancy | CPT/HCPCS: 82565; 82570; 84156; 84450; 84460; 84520 ==

== ENCOUNTER 2024-11-18 08:10 | Outpatient (CLI) | payer BC, SELFPAY ==
--- NOTE | 2024-11-18 08:15 | CRLHL7_ITS ---
For Patients: As a result of the Century Cures Act, medical imaging exams and procedure reports are released immediately into your electronic medical record. You may view this report before your referring provider. If you have questions, please contact your health care provider. Indication: Assess well-being. Hypertension. Technique: Sonography of the gravid uterus was performed as per protocol for a biophysical profile. The study is limited to that which is discussed below. Comparison: November 03, 2024 Findings: The biophysical profile score is 6/8 with 0 points for respiratory activity. The findings are unchanged when compared to the prior examination. There is a single live intrauterine gestation that is vertex. The single deepest pocket is 5 centimeters which is similar to the prior study. The placenta is anterior. heart rate is 149 beats per minute which is normal. Impression: 1. The biophysical profile score is 6/8 with 0 points for respiratory activity. These findings are unchanged compared to the prior study. 2. Single live intrauterine gestation that is vertex. Seventeen pus pocket 5 centimeters. Anterior placenta. 3. heart rate is 149 beats per minute Dictated by Rocky Corrales MD @ 11/18/2024 9:12:29 AM (Electronically Signed)
== END 2024-11-18 08:11 | disposition home or self-care (01) ==
LOC: US 08:10
PROVIDERS: Visit Provider Obstetrics & Gynecology
DX: O10.919 Unspecified pre-existing hypertension complicating pregnancy, unspecified trimester (principal)
CPT/HCPCS: 76819

== ENCOUNTER 2024-11-25 08:05 | Outpatient (CLI) | payer BC, SELFPAY | END 2024-11-25 08:06 | disposition home or self-care (01) | LOC: NFLDREF 11-26 18:17 | PROVIDERS: Visit Provider Obstetrics & Gynecology | DX: O10.913 Unspecified pre-existing hypertension complicating pregnancy, third trimester (principal); Z3A.35 35 weeks gestation of pregnancy | CPT/HCPCS: 82565; 82570; 84156; 84450; 84460; 84520 ==

== ENCOUNTER 2024-11-27 19:00 | Outpatient (CLI) | payer BC, SELFPAY ==
[2024-11-27 19:16] VITALS: BP 145/82; PULSE 84; RESP 17; TEMP 36.6
[2024-11-27 19:32] VITALS: BP 135/80; PULSE 77
--- NOTE | 2024-11-27 20:15 | PC.OBNST ---
NST Note NST Note Start: 11/27/24 18:30 Freq: ONCE Status: Active Protocol: Document 11/27/24 19:57 KATHI (Rec: 11/27/24 19:59 KATHI [id number]) NST Note 2 Para (# of births) 1 EDC 12/28/24 Gestational Age In Weeks & Days 35 Weeks & 4 Days High Risk Factors High Blood Pressure - Preexisting Patient Presented with Complaint(s) of Decreased movement Reactive Yes Appropriate for Gestational Age Yes KIARA Hwang RN Date 11/27/24 Reactive Yes Appropriate for Gestational Age Yes KIARA Garcia RN Date 11/27/24 OB NST charge Yes Complete NST Note via Write Note Yes The provider's electronic signature indicates the NST is reactive/appropriate for gestational age. *Note to provider: If an addendum is required, open the patient's chart and click on the note under the Nurse/Allied Health tab.
== END 2024-11-27 20:07 | disposition home or self-care (01) ==
LOC: OB OUT 19:00 → OB 19:13
PROVIDERS: Visit Provider Obstetrics & Gynecology
DX: O10.913 Unspecified pre-existing hypertension complicating pregnancy, third trimester (principal); O36.8130 Decreased fetal movements, third trimester, not applicable or unspecified; Z3A.35 35 weeks gestation of pregnancy
CPT/HCPCS: 59025; G0463

== ENCOUNTER 2024-11-30 10:18 | Outpatient (CLI) | payer BC, SELFPAY ==
--- NOTE | 2024-11-30 10:45 | CRLHL7_ITS ---
For Patients: As a result of the Century Cures Act, medical imaging exams and procedure reports are released immediately into your electronic medical record. You may view this report before your referring provider. If you have questions, please contact your health care provider. INDICATION: CHTN TECHNIQUE: Real time fulton scale imaging of the fetus was performed. COMPARISON: 11/18/2024 FINDINGS/IMPRESSION: Sonographic imaging demonstrates a single living intrauterine gestation. Fetus demonstrates a regular cardiac rate of 146 beats per minute. Fetus has a vertex position. The placenta lies anteriorly. Amniotic fluid volume appears normal and there is a single deepest pocket of 6.3 cm. The estimated weight is 2636gm which lies at the 31st %. On the prior OB ultrasound dated 11/03/2024 the estimated weight was at the 37th percentile. Abdominal circumference 43rd percentile. BPD is 27th percentile. HC 57th percentile. FL 9th percentile. Sonographic gestational age 35 weeks 4 days and sonographic due date of 12/31/2024. Good correlation with dates. Normal interval growth. The fetus was active and demonstrated normal breathing movements. There was normal flexion and extension of the trunk and extremities. Biophysical profile 06/30. Dictated by Handy Richard MD @ 11/30/2024 1:11:24 PM (Electronically Signed)
== END 2024-11-30 10:19 | disposition home or self-care (01) ==
PROVIDERS: Visit Provider Obstetrics & Gynecology
DX: O10.913 Unspecified pre-existing hypertension complicating pregnancy, third trimester (principal); Z3A.35 35 weeks gestation of pregnancy
CPT/HCPCS: 76816; 76819; 82565; 82570; 84156; 84450; 84460; 84520; 87081; 87653

== ENCOUNTER 2024-12-09 08:09 | Outpatient (CLI) | payer BC, SELFPAY | END 2024-12-09 08:10 | disposition home or self-care (01) | LOC: NFLDREF 12-10 18:56 | PROVIDERS: Visit Provider Obstetrics & Gynecology | DX: O10.913 Unspecified pre-existing hypertension complicating pregnancy, third trimester (principal); Z3A.37 37 weeks gestation of pregnancy | CPT/HCPCS: 82565; 82570; 84156; 84450; 84460; 84520 ==

== ENCOUNTER 2024-12-12 11:04 | Outpatient (CLI) | payer BC, SELFPAY ==
[2024-12-12 11:19] VITALS: PULSE 89; O2SAT 97
[2024-12-12 11:31] VITALS: BP 138/81; PULSE 78
[2024-12-12 11:47] VITALS: BP 137/80; PULSE 79
[2024-12-12 12:01] VITALS: BP 133/74; PULSE 85
[2024-12-12 12:17] VITALS: BP 120/64; PULSE 75
[2024-12-12 12:31] VITALS: BP 113/56; PULSE 70
--- NOTE | 2024-12-12 17:22 | PC.OBNST ---
NST Note NST Note Start: 12/12/24 11:23 Freq: ONCE Status: Discharge Protocol: Document 12/12/24 17:20 ABP (Rec: 12/12/24 17:22 ABP [id number]) NST Note 2 Para (# of births) 1 EDC 12/28/24 Gestational Age In Weeks & Days 37 Weeks & 5 Days High Risk Factors High Blood Pressure - Preexisting Patient Presented with Complaint(s) of Other Other Complaints Patient had 2 high blood pressures when she checked at work. History of PreE with previous and CHTN on meds during this . Reactive Yes KIARA Azar RN Date 12/12/24 Reactive Yes KIARA Reddy RN Date 12/12/24 OB NST charge Yes Complete NST Note via Write Note Yes The provider's electronic signature indicates the NST is reactive/appropriate for gestational age. *Note to provider: If an addendum is required, open the patient's chart and click on the note under the Nurse/Allied Health tab.
== END 2024-12-12 13:00 | disposition home or self-care (01) ==
LOC: OB OUT 11:04 → OB 11:06
PROVIDERS: Visit Provider Obstetrics & Gynecology
DX: O26.893 Other specified pregnancy related conditions, third trimester (principal); R03.0 Elevated blood-pressure reading, without diagnosis of hypertension; Z3A.37 37 weeks gestation of pregnancy
CPT/HCPCS: 59025; G0463

== ENCOUNTER 2024-12-14 05:47 | Inpatient (IN) | payer BC, SELFPAY ==
[2024-12-14] VITALS (27 sets, daily range): BP systolic 109–130; BP diastolic 63–92; PULSE 53–94; RESP 16–20; TEMP 36.3–37.2; O2SAT 94–99; BMI 47.2
[2024-12-14] MEDS: LACTATED RINGERS 1000 ML 1,000 ML 1200 ML IV (06:17)
[2024-12-14 06:33] LABS: Basophils Absolute Auto 0.02 K/uL (0.00-0.30); Basophils Percent Auto 0.2 % (0.0-3.0); Eosinophils Absolute Auto 0.02 K/uL (0.00-0.50); Eosinophils Percent Auto 0.2 % (0.0-7.0); Hematocrit 32.2 % (33.0-51.0); Hemoglobin* 10.3 gm/dL (12.0-16.0); Immature Granulocytes Abs Auto 0.09 K/uL (0.00-0.30); Immature Granulocytes Pct Auto 0.8 %; Lymphocytes Absolute Auto 2.69 K/uL (0.90-2.90); Lymphocytes Percent Auto 25.1 % (20-44); Mean Corpuscular HGB Conc 32 gm/dL (32-36); Mean Corpuscular Hemoglobin 25 pg (26-34); Mean Corpuscular Volume 80 fL (80-100); Monocytes Percent Auto 7.4 % (0.0-11.0); Neutrophils Absolute Auto 7.12 K/uL (1.7-7.0); Neutrophils Percent Auto 66.3 % (42.0-72.0); Platelet Count* 231 K/uL (140-440); RDW Coefficient of Variation % 14.7 % (11.5-15.5); Red Blood Count 4.05 m/uL (4.00-5.20); White Blood Count* 10.73 K/uL (4.50-11.00)
[2024-12-14] MEDS: LACTATED RINGERS 1000 ML 1,000 ML 125 ML IV (06:40)
[2024-12-14 06:47] LABS: Slide Review Reflex No
--- NOTE | 2024-12-14 06:56 | P.LDBA_ITS ---
Subjective History of Present Illness Date Seen: 12/14/24 Narrative: Patient is being admitted to Labor and Delivery for repeat section due to CHTN. She is a 29 year old at 38 0/7 weeks gestation. Her full history and physical was dictated by Dr. DAVIS on 11/30/24. Please see this for details. Originally we had planned for delivery at 39 weeks, but this past week, patient noted elevated blood pressures at home, upon evaluation BPs higher than baseline and Labetalol 100mg BID added to her regimen and recommendation was made for delivery at 38 weeks. Patient today states that BPs at home have improved, denies headaches, vision changes or pain in her upper abdomen. Specific Issues/Plans G 2 P 1001 Spouse: Guanako. Son: Jacob Baby: Randy Sarwat H&P by SHARLENEM on 11/30/24 Weekly preeclampsia labs starting at 32 weeks Ordered and scheduled # cardiac anomaly-As per patient 09/08/24 completed echo on 08/27/24 and all normal- see below VSD, liner A-V valves. An overriding aorta could not be r/o. echo-see below, normal. echocardiogram prior to discharge after delivery # Will NOT accept blood transfusion due to orthodoxy beliefs. # Chronic hypertension. Diagnosed at first OB visit. 160/110 and 164/100. Started nifedipine 30mg ER 06/01/24. F/u in 1-2 weeks w/ provider for BP check and med management. BP cuff rx sent to pharmacy. Check BP daily. Increased to 30mg BID on 06/16/24, 08/11/24: Increased to 60mg in am and 30 mg in pm. Labetalol 100mg BID added 12/09/24. baseline labs: Normal ALT, AST, BUN, Creat. 24 hour urine:Total protein: 192.5, P/C: 0.15 Daily low dose aspirin starting at 12 weeks Consult with M at time of level 2 US see below testing: Growth US every 4 weeks starting at 28 weeks and weekly testing starting at 32 weeks, prior if anything changes # History of preeclampsia. # BMI 49.6 A1C Nutrition referral Declined Anesthesia referral Completed in previous , not interested in this Level 2 FAS and consult with MFM # History of hypothyroidism. Stable without medications for approximately 1 year. TSH with reflex to T4 at 1st OB: Normal Repeat TSH late second trimester: 10/05/24: 1.520 normal # History of delivery- failed IOL Uncertain whether or not she wants a verses repeat . She does not want to be induced. Refusal of blood products would be a contraindication to pursue at our institution- needs to be discussed with patient at her 16 week visit, if she desires this strongly then we would recommend transfer of care to tertiary care center. 08/11/24: Has decided to proceed with a repeat delivery and most likely sterilization during surgery-no longer interested in sterilization # Anemia. Hb 10.8 on 12/07/24. Ferrous sulfate QOD. # Due for PP pap. Declined at first OB. testing plan: Form completed and sent 09/08/24 Growth US every 4 weeks starting at 28 weeks and weekly testing starting at 32 weeks, prior if anything changes Imaging: MFM consult 08/03/2024: EFW: 257 g, 33 percentile, anterior placenta not previa, three-vessel umbilical cord, normal amount of amniotic fluid, cervix closed and long. Anatomy evaluated found normal. Recommendations/plan: Continue to titrate antihypertensive medication to keep blood pressures less than 140/90. Continue low-dose aspirin, follow-up is scheduled with MFM in 3 weeks to reassess anatomy that was suboptimally seen today. 0 growth ultrasound s every 4 weeks beginning at 28 weeks, weekly surveillance at 32 weeks due to chronic hypertension on nifedipine. Delivery recommended at 38-39 weeks, unless otherwise clinically indicated sooner. MFM follow-up 08/24/2024: EFW: 38 percentile, A/C: 59th percentile. A ventricular septal defect is identified, with linear A-V valves. An overriding aorta cannot be ruled out. No other anatomy these commonly identified detected on ultrasound. Amniotic fluid normal. Recommendation: echocardiogram with Pediatric Cardiology. They also discussed that BSE can be associated with chromosomal malformations and they reviewed genetic testing/ screening, she has opted not to do this at this time. They did discuss the potential that delivery will need to occur at [facility] in [place] and she is open to delivery there if needed. They will await for echo and her follow-up ultrasound with MFM at 28 weeks before making further delivery location recommendations. echo completed on 08/26/2024: Likely normal echocardiogram. Normal cardiac anatomy. Normal right and left ventricular size and function. No effusion. Although this was a technical difficult study, the patient is aware that no obvious cardiac and nor abnormalities were identified. She is aware of the general limitations of echocardiogram. A echocardiogram is recommended to re-evaluate prior to discharge. 11/03/24: US: Vtx, SDP 5.1cm. BPP 6/8 (2 off for lack of respiratory activity). EFW: 1897 g, 4 lb 3 oz, 37%. BPD 22%, HC 23%, AC 54%, FL 25% Vaccines: Covid : COVID booster administered on 06/01/2024 Covid : Will get elsewhere Flu: Completed 08/2024 per pt flu clinic [place] Tdap:10/18/24 RSV: 11/03/24 GBS positive OB - Problem Based A/P Additional Plan (1) Chronic hypertension during : Problem details: Diagnosed 06/01/24 at first OB visit. Status: Acute (2) No blood products: Status: Acute Plan Proceed with repeat delivery. TXA after cord clamp, patient does not accept blood transfusions, anemic. OB Result Labs Labs: Hemoglobin:10.3mg/dL OB Exam Physical Exam Vital signs: Temp Pulse Resp BP Pulse Ox 98.3 F 94 16 119/85 97 12/14/24 06:33 12/14/24 06:33 12/14/24 06:33 12/14/24 06:33 12/14/24 06:33 Detailed Labor and Delivery Exam Patient Gravid: Yes Fetus (Single) Amniotic Membrane Status: intact Heart Rate Baseline: 135 Monitor Accelerations: Present Monitor Decelerations: None Longterm Variability: Moderate (6-25)
[2024-12-14 07:24] LABS: Alanine Aminotransferase* 12 U/L (4-35); Aspartate Amino Transferase* 21 U/L (12-35); Blood Urea Nitrogen* 5 mg/dL (5-24); Creatinine* 0.4 mg/dL (0.5-1.5); Est. Creatinine Clearance* 161.17; Estimated Glomerular Filt Rate 136 ml/min
[2024-12-14] MEDS: CEFAZOLIN 1 GM inj 3 GM IVP (07:40)
[2024-12-14] MEDS: miSOPROStoL 800 MCG/4 TABLET PR (08:00)
--- NOTE | 2024-12-14 09:04 | P.OBPRC_ITS ---
OB Delivery Proc Additional Procedures Tubal Ligation at the time of : No Other: No Procedure Date of procedure: 12/14/24 Pre-op diagnosis: IUP at 38 0/7 weeks Uncontrolled CHTN on medication Does not accept blood transfusions Anemia Post-op diagnosis: same (Now delivered) Procedure Done: Global Will [facility] bill your pro fee for this procedure?: Yes Blood Loss Measurement Type: QBL (427mL) Bakri Used: No IV fluids (mL): 1,300 Urine Output (mL): 100 Urine Output Comment: Clear urine at end of procedure Surgeon: Ca Lewis MD Anesthesia Type: Spinal Findings: FINDINGS: Live-born male , vertex presentation, Apgars 8 and 9 at 1 and 5 minutes respectively. weight 7 lb 3 oz. Omental adhesions to anterior abdominal wall. Procedure Name: Repeat low transverse section, lysis of adhesions Procedure Description: PROCEDURE: After obtaining informed consent, the patient was taken to the operating room where spinal anesthesia was obtained and found to be adequate. S he was prepared and draped in the normal sterile fashion in the dorsal supine position with a leftward tilt. A Pfannenstiel skin incision was made with a scalpel along the line of the patient's previous Pfannenstiel scar. This incision was carried down to the underlying layer of fascia with the scalpel and Bovie. The fascia was incised in the midline and the incision extended laterally. The superior aspect of the fascial incision was grasped with [place] clamps, elevated and the underlying rectus muscles dissected off sharply and with electrocautery. The rectus muscles were then in the midline. Omentum was identified to be attached to the parietal peritoneum, a window was opened, utilizing 1 large Nadine clamp and cautery the omentum was released from peritoneal attachment and the tagged end was ligated with Vicryl 0, hemostasis secured. This was repeated on 3 segments and this allowed mobilization of the omentum and placement of Obed retractor. The Obed O retractor was then placed into the incision. The lower uterine segment was then incised in a transverse fashion with the scalpel. Upon entry into the uterus, clear amniotic fluid was noted. The uterine incision was extended cephalo caudally with blunt finger fractionation. The 's head was delivered atraumatically, followed by the remainder of the infant's body. The nose and mouth were suctioned with the bulb suction. The cord was doubly clamped and cut, after 30 seconds of delayed cord clamping and the infant was handed off the field for evaluation. The placenta was delivered spontaneously with umbilical cord traction and fundal massage. 1g of IV TXA was given at this moment. The uterus was cleared of all clots and debris. Anterior uterine endometrial wall about 2-3 cm above hysterotomy noted to have a small defect of about 1-1.5cm, this was suture ligated with Vicryl 0 in a figure of 8. Hemostasis secured. At this time uterine atony also noted and clarified with anesthesia we had 40 units of Oxytocin running and added 800mcg of rectal Cytotec. This improved tone significantly. The uterine incision was reapproximated in a running locking fashion with a 0 Vicryl suture. A 2nd layer of the same suture was used to imbricate in horizontal fashion. Hemostasis secured. The gutters were inspected and cleared of blood clots. All instruments and retractors were removed. Omentum was re evaluated and hemostasis was again noted at previous adhesion release sites. The anterior peritoneum was reapproximated in a running fashion with a 3-0 Vicryl suture. The subfascial tissues were carefully inspected and hemostasis assured. The fascia was reapproximated in a running fashion with a looped 0 PDS suture. The subcutaneous tissues were copiously irrigated. Hemostasis was assured. The subcutaneous fat layer was reapproximated with continuous sutures of 3-0 Vicryl in 2 layers. The skin was closed in a subcuticular fashion with 4-0 Monocryl. LiquiBand and dressing were applied. The patient tolerated the procedure well. Sponge, lap, needle, and instrument counts were reported as correct x2. The patient was taken to the recovery room, awake, and in stable condition. She did receive 3 grams of IV Ancef preoperatively. Complications: None Pathology: specimen obtained, sent to pathology (Placenta) Surgery Debrief Performed: Yes Condition: stable Disposition: floor Infant total score - 1 minute: 8 total score - 5 minute: 9
--- NOTE | 2024-12-14 09:21 | P.ANES_ITS ---
Anesthesia Charges Start Date/Time Anesthesia Start Date: 12/14/24 Anesthesia Start Time: 07:15 Stop Date/Time Anesthesia Stop Date: 12/14/24 Anesthesia Stop Time: 09:15 Coding CPT Codes CPT Codes: ANESTH CS DELIVERY - 41258 ([id number]) P3 - PATIENT W/SEVERE SYS DISEASE, QK - HEARTH FEEDER 2-4 CNCRNT ANES PROC, QX - C APPLICATION DEVELOPER SVC W/ MD MED DIRECTION
--- NOTE | 2024-12-14 09:21 | P.ANES_ITS ---
Anesthesia Charges Start Date/Time Anesthesia Start Date: 12/14/24 Anesthesia Start Time: 07:15 Stop Date/Time Anesthesia Stop Date: 12/14/24 Anesthesia Stop Time: 09:15 Coding CPT Codes CPT Codes: ANESTH CS DELIVERY - 91589 ([id number]) P3 - PATIENT W/SEVERE SYS DISEASE, QK - COMMUNICATIONS COORDINATOR 2-4 CNCRNT ANES PROC, QX - CSR TECHNICIAN SVC W/ MD MED DIRECTION
--- NOTE | 2024-12-14 09:21 | W.ANESCHARGE ---
Anesthesia Charges Start Date/Time Anesthesia Start Date: 12/14/24 Anesthesia Start Time: 07:15 Stop Date/Time Anesthesia Stop Date: 12/14/24 Anesthesia Stop Time: 09:15 Coding CPT Codes CPT Codes: ANESTH CS DELIVERY - 11629 ([id number]) P3 - PATIENT W/SEVERE SYS DISEASE, QK - TRAIN BRAKER 2-4 CNCRNT ANES PROC, QX - SOFT TILE SETTER SVC W/ MD MED DIRECTION
--- NOTE | 2024-12-14 09:21 | W.ANESCHARGE ---
Anesthesia Charges Start Date/Time Anesthesia Start Date: 12/14/24 Anesthesia Start Time: 07:15 Stop Date/Time Anesthesia Stop Date: 12/14/24 Anesthesia Stop Time: 09:15 Coding CPT Codes CPT Codes: ANESTH CS DELIVERY - 54935 ([id number]) P3 - PATIENT W/SEVERE SYS DISEASE, QK - SPEECH SCIENTIST 2-4 CNCRNT ANES PROC, QX - RN SUPPLEMENTAL SVC W/ MD MED DIRECTION
--- NOTE | 2024-12-14 09:22 | W.PM.NB ---
Nerve Block Nerve Block Time Seen by Provider: 09:05 Date Seen: 12/14/24 Type of block requested by surgeon for post-operative analgesia: TAP Side: bilateral Time out performed: Yes Verification of patient name: Yes Verification of date of : Yes Site marking: not applicable Name of person performing procedure: Sumeet Azar Procedure Ultrasound guided. Images saved: Yes Medications given in 5ml increments after negative aspiration: Marcaine %: 0.25 mL: 30 Needle gauge: 20 and Exparel mL: 10 Needle gauge: 20 Patient tolerated procedure well: Yes Block Charges Block Charge (with Pro Fee): TAP Bilateral Use of Ultrasound Machine for Block: Yes- US Guidance/pain block
[2024-12-14 12:41] LABS: Alanine Aminotransferase* 11 U/L (4-35); Aspartate Amino Transferase* 21 U/L (12-35); Blood Urea Nitrogen* 6 mg/dL (5-24); Creatinine* 0.5 mg/dL (0.5-1.5); Est. Creatinine Clearance* 128.94; Estimated Glomerular Filt Rate 129 ml/min
[2024-12-14] MEDS: KETOROLAC 30 MG/ML inj IVP ×2 (13:55→20:34)
[2024-12-14] MEDS: DOCUSATE SODIUM 100 MG CAPSULE PO (13:55)
[2024-12-14] MEDS: diphenhydrAMINE 50 MG/ML inj 12.5 MG IVP (14:13)
[2024-12-14] MEDS: LABETALOL HCL 100 MG TABLET PO (20:35)
[2024-12-14] MEDS: NIFEdipine 30 MG TAB.ER.24 PO (20:36)
[2024-12-14] MEDS: ENOXAPARIN 40 MG/0.4 ML INJ SUBCUT (20:37)
[2024-12-15] VITALS (14 sets, daily range): BP systolic 111–131; BP diastolic 66–86; PULSE 72–96; RESP 16–18; TEMP 36.6–37.2; O2SAT 96–97
[2024-12-15] MEDS: KETOROLAC 30 MG/ML inj IVP ×3 (02:15→15:31)
[2024-12-15] MEDS: ACETAMINOPHEN 500 MG TABLET 1000 MG PO ×3 (03:33→18:08)
[2024-12-15 06:00] LABS: Hemoglobin* 9.7 gm/dL (12.0-16.0)
--- NOTE | 2024-12-15 08:25 | PM.OBPNVD1 ---
OB - PN:Subj Subjective Date Seen: 12/15/24 Narrative: Roberta is a 29 y.o. G 2 P 2 who was admitted to L & D for repeat c/s with Chronic HTN. ?She had a section that was uncomplicated. The patient feels well. ?The pain is well controlled with current medications. ?She has no new complaints. ?She is breast feeding and reports things are going okay. She is seeing due to hx of low milk supply. the patient has done well.? Vitals have been stable.? She has remained afebrile.? Has a good appetite, is tolerating a general diet. ?She is voiding without difficulty.? She is passing gas and has not had a bowel movement.? She is ambulating and denies any dizziness.? Has small amount of rubra lochia. Her blood pressure has been stable on BID labetalol 100 mg and Nifedipine 60 mg in the AM and 30 mg in the evening. Problems: anemia OB - PN: Obj Exam Physical Exam: Vital signs: Temp Pulse Resp BP Pulse Ox O2 Del Method 98.4 F 84 18 111/76 97 Room Air 12/15/24 05:15 12/15/24 05:15 12/15/24 06:25 12/15/24 05:15 12/15/24 05:15 12/15/24 05:15 Narrative: GENERAL APPEARANCE:? normal affect, alert, no distress MOOD:? appropriate CHEST:? clear to auscultation HEART:? regular rate and rhythm ABDOMEN:? soft, non-tender the uterine fundus is At Umbilicus, Midline and is appropriate for the stage of recovery. EXTREMITIES:? normal and no edema INCISION: Healing well, no surrounding erythema, abnormal induration or discharge OB - PN: Obj Data Labs Labs: Laboratory Results - last 24 hr 12/14/24 12/14/24 12/15/24 12:21 16:38 05:53 Hgb 9.7 L BUN 6 Creatinine 0.5 Estimated Creat Clear 128.94 Estimated GFR 129 AST 21 ALT 11 Urine Creatinine Cancelled Protein/Creatinin Ratio Cancelled Urine Total Protein Cancelled OB - PN: A/P Delivery Assessment and Plan (1) care and examination immediately after delivery: Status: Acute (2) Chronic hypertension during : Problem details: Diagnosed 06/01/24 at first OB visit. Status: Acute (3) No blood products: Status: Acute (4) Lactating mother: Status: Acute Plan day: 1 Comments: , may see if needed? Hgb 9.7. Iron supplement ordered orally every other day? Chronic HTN. Continue to monitor. Anticipate discharge tomorrow or the following day.
[2024-12-15] MEDS: ENOXAPARIN 40 MG/0.4 ML INJ SUBCUT ×2 (08:41→21:00)
[2024-12-15] MEDS: FERROUS SULFATE 325 MG TABLET PO (08:43)
[2024-12-15] MEDS: LABETALOL HCL 100 MG TABLET PO ×2 (08:43→21:00)
[2024-12-15] MEDS: DOCUSATE SODIUM 100 MG CAPSULE PO (08:43)
[2024-12-15] MEDS: NIFEdipine 30 MG TAB.ER.24 60 MG PO (08:44)
[2024-12-15] MEDS: OXYCODONE 5 MG TABLET PO (21:00)
[2024-12-15] MEDS: NIFEdipine 30 MG TAB.ER.24 PO (21:00)
[2024-12-15] MEDS: IBUPROFEN 600 MG TABLET PO (23:39)
[2024-12-16] MEDS: ACETAMINOPHEN 500 MG TABLET 1000 MG PO (04:24)
[2024-12-16 04:28] VITALS: BP 136/84; PULSE 93; RESP 16; TEMP 36.9; O2SAT 98
--- NOTE | 2024-12-16 08:20 | P.DS_ITS ---
DS: Providers Provider Date Seen: 12/16/24 Date of admission: 12/14/24 05:47 Primary care physician: Not a Local Provider Admitting Clinician: Shae Lewis MD Attending Physician on discharge: Calista TRAN APRN Date of Discharge: 12/16/24 DS: Diagnosis Discharge Diagnosis (1) Lactating mother: Status: Acute (2) care and examination immediately after delivery: Status: Acute (3) History of hypothyroidism: Status: Acute (4) Adult BMI 45.0-49.9 kg/sq m: Status: Acute (5) Chronic hypertension during : Status: Acute Problem details: Diagnosed 06/01/24 at first OB visit. Exam Narrative: Exam Narrative: GENERAL APPEARANCE:? normal affect, alert, no distress MOOD:? appropriate CHEST:? clear to auscultation HEART:? regular rate and rhythm ABDOMEN:? soft, non-tender the uterine fundus is At Umbilicus, Midline and is appropriate for the stage of recovery. EXTREMITIES:? normal and mild edema Incision: Healing well, no surrounding erythema, abnormal induration or discharge Const: Vital Signs, click to edit/add: Vital Signs - 24 hr 12/15/24 08:50 12/15/24 12:37 12/15/24 17:06 Temperature 98.2 F 98.1 F 98 F Pulse Rate [Pulse Oximeter] 72 81 81 Respiratory Rate 18 16 16 Blood Pressure [Ri ght Arm] 119/76 131/82 121/66 Pulse Oximetry 97 97 97 Oxygen Delivery Me thod Room Air Room Air Room Air 12/15/24 20:54 12/15/24 23:41 12/16/24 04:28 Temperature 98.9 F 98.8 F 98.4 F Pulse Rate [Pulse Oximeter] 89 96 93 Respiratory Rate 16 16 16 Blood Pressure [Ri ght Arm] 125/86 116/77 136/84 Pulse Oximetry 96 96 98 Oxygen Delivery Me thod Room Air Room Air Room Air OB - DS: Summary Hospital Course Hospital Course: Roberta is a 29 y.o. G 2 P 2001 who was admitted to L & D for scheduled repeat with obesity, chronic htn at term.? She had a section that was uncomplicated. The patient feels well.? The pain is well controlled with current medications.?she is using oxycodone minimally. She has no new complaints.? She is breast feeding and reports things are going well, but her supply is low so she is pumping after feeds and supplementing. the patient has done well.? Vitals have been stable.? She has remained afebrile.? Has a good appetite, is tolerating a general diet.? She is voiding without difficulty.? She is passing gas and has not had a bowel movement.? She is ambulating and denies any dizziness.? Has small amount of rubra lochia. She is planning mini-pill for prevention.? ?? Problems: ?none ?? plan:? Discharge home with baby.? Follow up in 2 weeks and 6 weeks.? , may see if needed? Hgb 9.7. Iron supplement ordered orally every other day--to continue this PP? Chronic HTN Labs WNL or stable with trending? Discharge home with BP cuff if does not already have one? Follow up in 3-5 days? Call for signs/symptoms of preeclampsia? Peripartum Data Infant delivery method: Repeat Section Laceration description: None Episiotomy description: None Procedures: Procedures Operation Date: 12/14/24 07:15 Actual Procedure Side Surgeon p Repeat Shae Lewis MD complications: none Gender: Male Infant Discharge Plan: Home Status at Discharge Overall status at discharge: patient is progressing back to baseline Time Spent with Patient Time attestation: Total time spent providing and/or coordinating discharge services: Time spent: Less than 30 minutes Discharge Plan Discharge Disposition: Home, Self-Care Date of Admission: 12/14/24 05:47 Attending Provider on Discharge: Sandra Mckeon Primary Care Provider: Provider,Not a Local Condition: Stable Anticipated Discharge Date/Time: 12/16/24 12:28 Discharge Medications: New oxycodone 5 mg tablet 5 mg PO Q6H PRN (Reason: pain) 14 Days Qty: 20 0RF docusate sodium 100 mg Capsule 100 mg PO DAILY Qty: 60 0RF Continued (DME) blood pressure monitor [Blood Pressure Kit] Kit See Rx Instructions .Route Qty: 1 0RF Rx Instructions: As directed labetalol 100 mg tablet 100 mg PO BID Qty: 60 0RF prenat.vits,allsyon,ghx-[id number] Tablet 1 tab PO QDAY cholecalciferol (vitamin D3) 10 mcg (400 unit) capsule 10 mcg PO QDAY aspirin 81 mg capsule 81 mg PO QDAY calcium carbonate 600 mg calcium (1,500 mg) tablet 600 mg PO QDAY Saccharomyces boulardii [Daily Probiotic (S. boulardii)] 250 mg capsule 250 mg PO BID magnesium oxide 400 mg magnesium tablet 400 mg PO QDAY ferrous gluconate 236 mg (27 mg iron) tablet 236 mg PO .QOD nifedipine 60 mg tablet extended release 60 mg PO QDAY Qty: 30 2RF nifedipine 30 mg tablet extended release 30 mg PO QDAY Qty: 30 2RF Discharge Orders: Discharge Order (Routine); Ordered 12/16/24 Ordered By: Sandra Mckeon Patient Education: OB High Blood Pressure DC, OB [place] Care, OB /Breast Feeding Additional Instructions: Discharge instructions were reviewed with the patient including signs and symptoms of infection and home going medications Lifting Restrictions: 20 pounds for 6 weeks No not submerge incision under water X 2 weeks? Nothing vaginally for 6 weeks: no tampons or intercourse Do not drive while taking narcotic pain medication(s) Off Work or School for 6 weeks Symptoms to report to doctor: * Bleeding that saturates more than one pad per hour * Passing clots larger than the size of a golf ball * Pain not relieved by prescribed medication * Fever above 100.4 degrees Fahrenheit * A foul vaginal odor * Difficulty in emotions, mood, and functions * Thoughts of hurting yourself and/or * Painful, reddened area in your breast * Any drainage, redness, or tenderness in your IV/epidural site * Severe headache that doesn't improve after taking medications * Changes in vision, including temporary loss of vision, blurred vision, and/or light sensitivity * Upper abdominal pain (usually under ribs on the right side) * Decrease in urination or painful, frequent urinating * Chest pain * Shortness of breath * Tenderness or pain with redness and/swelling in the calf(s) of your leg [facility] for a BP check?12/19/2024 Call with BP greater than or equal to 160/110 2-week visit: incision check, discuss infant feeding concerns, review control options and screen for anxiety/depression. 6-week visit for an annual exam. consultation services are available to all mothers and babies for the first year after delivery.? To make an appointment, please call [phone]. For pain control of perineum, breast and pelvic pain, take 600 mg Ibuprofen every 6 hours as needed by mouth or 1000 mg acetaminophen (Tylenol) every 6 hours by mouth as needed. You can alternate these so you are taking something every 3 hours as needed. A heating pad can also be used for your abdomen or breasts. You may also take docusate sodium up to twice daily to soften your stools and help to prevent constipation. You may wean off of it when your stools return to normal.? Activity Level: Activity as Tolerated and No strenuous activity Discharge Diet: Regular Follow Up Appointments: [facility] [Provider Group] Forms: MyHealth Info Instructions
[2024-12-16] MEDS: LABETALOL HCL 100 MG TABLET PO (08:46)
[2024-12-16] MEDS: FERROUS SULFATE 325 MG TABLET PO (08:46)
[2024-12-16] MEDS: DOCUSATE SODIUM 100 MG CAPSULE PO (08:46)
[2024-12-16] MEDS: ENOXAPARIN 40 MG/0.4 ML INJ SUBCUT (08:47)
[2024-12-16] MEDS: NIFEdipine 30 MG TAB.ER.24 60 MG PO (08:47)
[2024-12-16 08:50] VITALS: BP 124/88; PULSE 94; RESP 18; TEMP 36.7; O2SAT 97
[2024-12-16] MEDS: IBUPROFEN 600 MG TABLET PO (08:55)
== END 2024-12-16 11:16 | disposition home or self-care (01) | DRG 540 ==
PROVIDERS: Admitting Provider Obstetrics & Gynecology; Visit Provider Obstetrics & Gynecology
PROC: 10D00Z1 Extraction of Products of Conception, Low, Open Approach (ICD-10-PCS; CPT 59514; principal; 2024-12-14 07:15)
DX: O10.92 Unspecified pre-existing hypertension complicating childbirth (principal); Z3A.38 38 weeks gestation of pregnancy; Z37.0 Single live birth; G89.18 Other acute postprocedural pain; O99.214 Obesity complicating childbirth; E66.9 Obesity, unspecified; O99.02 Anemia complicating childbirth; D64.9 Anemia, unspecified; O62.2 Other uterine inertia; O99.892 Other specified diseases and conditions complicating childbirth; N73.6 Female pelvic peritoneal adhesions (postinfective); Z86.39 Personal history of other endocrine, nutritional and metabolic disease; Z87.59 Personal history of other complications of pregnancy, childbirth and the puerperium; Z78.9 Other specified health status
CPT/HCPCS: 01961; 36415; 64488; 76942; 82565; 82570; 84156; 84450; 84460; 84520; 85018; 85025; 85027; 86850; 86900; 86901; 88307; A4314; A9270; J0690; J1100; J1200; J1650; J1885; J2274; J2371; J2405; J2590; J7120

== ENCOUNTER 2025-02-02 15:21 | Outpatient (CLI) | payer BC, SELFPAY ==
[2025-02-05 03:12] LABS: HPV Source Cervix; HPV, High Risk by TMA Not Detected
== END 2025-02-02 15:22 | disposition home or self-care (01) ==
PROVIDERS: Visit Provider Physician Assistant
DX: E03.9 Hypothyroidism, unspecified (principal); Z12.4 Encounter for screening for malignant neoplasm of cervix; Z11.51 Encounter for screening for human papillomavirus (HPV)
CPT/HCPCS: 84443; 87624; 87625; 88141; 88142